=== PATIENT | female | born 1950 | race Caucasian/White ===

== ENCOUNTER 2017-09-06 18:04 | Inpatient (IN) | payer BC, OTHER ==
[2017-09-06] MEDS ORDERED: Sodium Chloride 0.9% 1,000 ML IV ONE (18:52)
[2017-09-06] MEDS ORDERED: Ondansetron 4 MG/2 ML SDV IVPUSH ONE (18:52)
[2017-09-06 19:27] LABS: CHLORIDE,CL 100 mmol/L (98-107); SODIUM,NA 136 mmol/L (136-145)
[2017-09-06] MEDS ORDERED: Iopamidol 755 MG/ML 200 ML Multipack Bottle IVPUSH ONE (20:22)
--- NOTE | 2017-09-06 21:19 | PCM.HP ---
H&P History of Present Illness - General Date of Service: 09/06/17 Source of Information: Patient History Limitations: Reports: No Limitations - History of Present Illness Initial Comments - Free Text/Narative: Patient is a 67 year old female with a past medical history significant for breast cancer, heart disease, hypothyroidism who presents with abdominal pain. She developed upper abdominal pain last Friday. The pain became more centered on the right side and she presented to the [place] [facility] on Friday. They did an US of the RUQ that showed a normal gallbladder. They told her that she had diverticulitis. She was given cipro and flagyl. She did not take it until yesterday (Friday) evening. She started having nausea and vomiting yesterday morning. She has been unable to keep down fluids or solids. She denies fever but felt warm. She last ate at 5pm but vomited this up. Her father of colon cancer. Her last colonoscopy was "a long time ago." She was told her heart is enlarged but takes ASA and atenolol. She has had an echo but doesnt know the results of it. Abdomen Pain Score (Numeric/FACES): 5 - Related Data Allergies/Adverse Reactions: Allergies Allergy/AdvReac Type Severity Reaction Status Date / Time amoxicillin Allergy Rash Verified 09/06/17 18:21 Home Medications: Home Meds Aspirin 325 mg PO DAILY 09/06/17 [History] Atenolol [Tenormin] 50 mg PO DAILY 09/06/17 [History] Levothyroxine 75 mcg PO DAILY 09/06/17 [History] atorvaSTATin [Lipitor] 80 mg PO DAILY 09/06/17 [History] Past Medical History Cardiovascular History: Reports: Cardiomyopathy, High Cholesterol, Hypertension Gastrointestinal History: Reports: Diverticulosis, Other (See Below) Other Gastrointestinal History: diverticulits or chron's-unsure of dx [employer] History: Reports: Musculoskeletal History: Reports: Arthritis, Osteoporosis Endocrine/Metabolic History: Reports: Hypothyroidism Oncologic (Cancer) History: Reports: Breast - Infectious Disease History Infectious Disease History: Reports: Chicken Pox, Measles, Mumps - Past Surgical History HEENT Surgical History: Reports: Tonsillectomy Female Surgical History: Reports: Cystectomy, Mastectomy, Tubal Ligation Oncologic Surgical History: Reports: Mastectomy Social & Family History - Family History Oncologic: Reports: Colon (father) - Tobacco Use Smoking Status *Q: Former Smoker Used Tobacco, but Quit: Yes Month Tobacco Last Used: 1970 - Caffeine Use Caffeine Use: Reports: None - Recreational Drug Use Recreational Drug Use: No H&P Review of Systems - Review of Systems: Review Of Systems: See Below General: Reports: Malaise, Weakness, Fatigue, Diaphoresis, Decreased Appetite Pulmonary: Reports: No Symptoms Cardiovascular: Reports: No Symptoms Gastrointestinal: Reports: Abdominal Pain, Anorexia, Diarrhea, Decreased Appetite Genitourinary: Reports: No Symptoms Musculoskeletal: Reports: No Symptoms Skin: Reports: No Symptoms Exam - Exam Exam: See Below - Vital Signs Vital Signs: Last Vital Signs Temp 36.8 C 09/06/17 18:17 Pulse 113 H 09/06/17 18:17 Resp 20 09/06/17 18:17 BP 121/93 H 09/06/17 18:17 Pulse Ox 94 L 09/06/17 18:17 Weight: 67.585 kg - Exam General: Alert, Oriented, Mild Distress HEENT: Conjunctiva Clear, Posterior Pharynx Clear, Pupils Equal, Pupils Reactive Neck: Supple Lungs: Clear to Auscultation, Normal Respiratory Effort Cardiovascular: Regular Rate, Regular Rhythm GI/Abdominal Exam: Soft, Distended, Guarding, Rebound, Tender. No: Rigid Extremities: Normal Inspection, Normal Range of Motion - Patient Data Lab Results Last 24 hrs: Laboratory Results - last 24 hr 09/06/17 09/06/17 09/06/17 Range/Units 18:59 18:59 18:59 WBC 13.13 H (4.0-11.0) K/uL RBC 4.52 (4.30-5.90) M/uL Hgb 14.0 (12.0-16.0) g/dL Hct 41.5 (36.0-46.0) % MCV 91.8 (80.0-98.0) fL MCH 31.0 (27.0-32.0) pg MCHC 33.7 (31.0-37.0) g/dL RDW Std Deviation 44.4 (28.0-62.0) fl RDW Coeff of Terry 13 (11.0-15.0) % Plt Count 240 (150-400) K/uL MPV 9.30 (7.40-12.00) fL Neut % (Auto) 85.4 H (48.0-80.0) % Lymph % (Auto) 5.3 L (16.0-40.0) % [place] % (Auto) 9.1 (0.0-15.0) % Eos % (Auto) 0.0 (0.0-7.0) % Baso % (Auto) 0.2 (0.0-1.5) % Neut # (Auto) 11.2 H (1.4-5.7) K/uL Lymph # (Auto) 0.7 (0.6-2.4) K/uL [place] # (Auto) 1.2 H (0.0-0.8) K/uL Eos # (Auto) 0.0 (0.0-0.7) K/uL Baso # (Auto) 0.0 (0.0-0.1) K/uL Nucleated RBC % 0.0 /100WBC Nucleated RBCs # 0 K/uL Lactate 0.9 (0.20-2.00) mmol/L Sodium 136 (136-145) mmol/L Potassium 3.6 (3.5-5.1) mmol/L Chloride 100 (98-107) mmol/L Carbon Dioxide 27.5 (21.0-32.0) mmol/L BUN 21 H (7.0-18.0) mg/dL Creatinine 0.8 (0.6-1.0) mg/dL Est Cr Clr Drug Dosing 47.67 mL/min Estimated GFR (MDRD) > 60.0 ml/min Glucose 135 H (74-106) mg/dL Calcium 8.8 (8.5-10.1) mg/dL Total Bilirubin 1.1 H (0.2-1.0) mg/dL AST 22 (15-37) U/L ALT 29 (14-63) U/L Alkaline Phosphatase 94 (46-116) U/L Total Protein 7.3 (6.4-8.2) g/dL Albumin 2.8 L (3.4-5.0) g/dL Globulin 4.5 H (2.0-3.5) g/dL Albumin/Globulin Ratio 0.6 L (1.3-2.8) Amylase 16 L (25-115) U/L Lipase 86 (73-393) U/L Urine Color Urine Appearance Urine pH (5.0-8.0) Ur Specific [place] (1.001-1.035) Urine Protein (NEGATIVE) mg/dL Urine Glucose (UA) (NEGATIVE) mg/dL Urine Ketones (NEGATIVE) mg/dL Urine Occult Blood (NEGATIVE) Urine Nitrite (NEGATIVE) Urine Bilirubin (NEGATIVE) Urine Ictotest Urine Urobilinogen (<2.0) EU/dL Ur Leukocyte Esterase (NEGATIVE) Urine RBC (0-2/HPF) Urine WBC (0-5/HPF) Ur Epithelial Cells (NONE-FEW) Amorphous Sediment (NEGATIVE) Urine Bacteria (NEGATIVE) Urine Other Urinalysis Comment 09/06/17 Range/Units 20:14 WBC (4.0-11.0) K/uL RBC (4.30-5.90) M/uL Hgb (12.0-16.0) g/dL Hct (36.0-46.0) % MCV (80.0-98.0) fL MCH (27.0-32.0) pg MCHC (31.0-37.0) g/dL RDW Std Deviation (28.0-62.0) fl RDW Coeff of [place] (11.0-15.0) % Plt Count (150-400) K/uL MPV (7.40-12.00) fL Neut % (Auto) (48.0-80.0) % Lymph % (Auto) (16.0-40.0) % [place] % (Auto) (0.0-15.0) % Eos % (Auto) (0.0-7.0) % Baso % (Auto) (0.0-1.5) % Neut # (Auto) (1.4-5.7) K/uL Lymph # (Auto) (0.6-2.4) K/uL [place] # (Auto) (0.0-0.8) K/uL Eos # (Auto) (0.0-0.7) K/uL Baso # (Auto) (0.0-0.1) K/uL Nucleated RBC % /100WBC Nucleated RBCs # K/uL Lactate (0.20-2.00) mmol/L Sodium (136-145) mmol/L Potassium (3.5-5.1) mmol/L Chloride (98-107) mmol/L Carbon Dioxide (21.0-32.0) mmol/L BUN (7.0-18.0) mg/dL Creatinine (0.6-1.0) mg/dL Est Cr Clr Drug Dosing mL/min Estimated GFR (MDRD) ml/min Glucose (74-106) mg/dL Calcium (8.5-10.1) mg/dL Total Bilirubin (0.2-1.0) mg/dL AST (15-37) U/L ALT (14-63) U/L Alkaline Phosphatase (46-116) U/L Total Protein (6.4-8.2) g/dL Albumin (3.4-5.0) g/dL Globulin (2.0-3.5) g/dL Albumin/Globulin Ratio (1.3-2.8) Amylase (25-115) U/L Lipase (73-393) U/L Urine Color DARK YELLOW Urine Appearance SLT CLOUDY Urine pH 5.0 (5.0-8.0) Ur Specific [place] >= 1.030 (1.001-1.035) Urine Protein 100 (NEGATIVE) mg/dL Urine Glucose (UA) 100 H (NEGATIVE) mg/dL Urine Ketones TRACE H (NEGATIVE) mg/dL Urine Occult Blood TRACE-LYSED (NEGATIVE) Urine Nitrite POSITIVE H (NEGATIVE) Urine Bilirubin MODERATE H (NEGATIVE) Urine Ictotest NEGATIVE Urine Urobilinogen 2.0 H (<2.0) EU/dL Ur Leukocyte Esterase TRACE (NEGATIVE) Urine RBC 0-2 (0-2/HPF) Urine WBC 0-3 (0-5/HPF) Ur Epithelial Cells FEW (NONE-FEW) Amorphous Sediment LIGHT (NEGATIVE) Urine Bacteria 1+ H (NEGATIVE) Urine Other Not Reportable Urinalysis Comment Result Diagrams: 09/06/17 18:59 09/06/17 18:59 *Q Meaningful Use (ADM) - VTE *Q VTE Criteria *Q: - Stroke *Q Stroke Criteria *Q: - AMI *Q AMI Criteria *Q: - Problem List (1) SBO (small bowel obstruction) SNOMED Code(s): 105341804 ICD Code: K56.609 - UNSP INTESTNL OBST, UNSP TO PARTIAL VERSUS COMPLETE OBST Status: Acute Current Visit: Yes (2) Appendicitis SNOMED Code(s): 12757625 ICD Code: K37 - UNSPECIFIED APPENDICITIS Status: Acute Current Visit: Yes Problem List Initiated/Reviewed/Updated: Yes Orders Last 24hrs: Active Orders 24 hr Category Date Time Status EKG Documentation Completion [RC] STAT Care 09/06/17 20:52 Active Abdomen Pelvis w Cont [CT] Stat Exams 09/06/17 19:21 Taken CULTURE BLOOD [BC] Stat Lab 09/06/17 20:50 Received CULTURE BLOOD [BC] Stat Lab 09/06/17 20:56 Received Blood Culture x2 Reflex Set [OM.PC] Stat Oth 09/06/17 20:22 Ordered Assessment/Plan Comment:: Patient is a 67 year old female who presents with what appears to be acute appendicitis associated with a partial SBO. Her bowel distension on exam and CT is not enough to preclude me from trying to attempt a laparoscopic approach to appendectomy. However the patient understands that I will have a low threshold to go open if I cannot establish a working domain or if I cannot successfully remove the appendix laparoscopically due to anatomy or perforation. The patient understands that because of her distended small bowel there is a slightly higher risk of damaging surrounding bowel upon entry. The benefits of laparoscopic surgery over open are less pain, shorter hospital stay and sooner back to work. She and I discussed the pathophysiology of acute appendicitis. We discussed the expected erick-operative course. We discussed the risks including bleeding, infection, or damage to surrounding structures. She understands these , verbalized understanding and wishes to proceed.
[2017-09-06] MEDS ORDERED: HYDROmorphone 1 MG/ML Syringe IVPUSH PRN (21:31)
[2017-09-06] MEDS ORDERED: ceFAZolin 1 GM Vial ONE (21:39)
[2017-09-06] MEDS ORDERED: Bupivacaine 0.5% 30 ML SDV ONE (21:39)
--- NOTE | 2017-09-06 21:42 | PCM.PREANE ---
Preanesthetic Assessment - Anesthesia/Transfusion/Family Hx Anesthesia History: Prior Anesthesia Without Reaction - Review of Systems General: No Symptoms Pulmonary: No Symptoms Cardiovascular: No Symptoms Gastrointestinal: No Symptoms Neurological: No Symptoms Other: Reports: None - Physical Assessment NPO Status Date: 09/06/17 NPO Status Time: 15:00 O2 Sat by Pulse Oximetry: 95 Respiratory Rate: 17 Vital Signs: Last Vital Signs Temp 98.2 F 09/06/17 18:17 Pulse 97 09/06/17 21:19 Resp 17 09/06/17 21:19 BP 164/104 H 09/06/17 21:19 Pulse Ox 95 09/06/17 21:19 Height: 5 ft Weight: 67.585 kg ASA Class: 3 Mental Status: Alert & Oriented x3 Airway Class: Mallampati = 2 Dentition: Reports: Hale(s), Caries Thyro-Mental Finger Breadths: 2 Mouth Opening Finger Breadths: 2 ROM/Head Extension: Limited/Partial Lungs: Clear to Auscultation, Normal Respiratory Effort Cardiovascular: Regular Rhythm, Tachycardia - Lab Values: Laboratory Last Values WBC 13.13 K/uL (4.0-11.0) H 09/06/17 18:59 RBC 4.52 M/uL (4.30-5.90) 09/06/17 18:59 Hgb 14.0 g/dL (12.0-16.0) 09/06/17 18:59 Hct 41.5 % (36.0-46.0) 09/06/17 18:59 MCV 91.8 fL (80.0-98.0) 09/06/17 18:59 MCH 31.0 pg (27.0-32.0) 09/06/17 18:59 MCHC 33.7 g/dL (31.0-37.0) 09/06/17 18:59 RDW Std Deviation 44.4 fl (28.0-62.0) 09/06/17 18:59 RDW Coeff of Terry 13 % (11.0-15.0) 09/06/17 18:59 Plt Count 240 K/uL (150-400) 09/06/17 18:59 MPV 9.30 fL (7.40-12.00) 09/06/17 18:59 Neut % (Auto) 85.4 % (48.0-80.0) H 09/06/17 18:59 Lymph % (Auto) 5.3 % (16.0-40.0) L 09/06/17 18:59 [place] % (Auto) 9.1 % (0.0-15.0) 09/06/17 18:59 Eos % (Auto) 0.0 % (0.0-7.0) 09/06/17 18:59 Baso % (Auto) 0.2 % (0.0-1.5) 09/06/17 18:59 Neut # (Auto) 11.2 K/uL (1.4-5.7) H 09/06/17 18:59 Lymph # (Auto) 0.7 K/uL (0.6-2.4) 09/06/17 18:59 [place] # (Auto) 1.2 K/uL (0.0-0.8) H 09/06/17 18:59 Eos # (Auto) 0.0 K/uL (0.0-0.7) 09/06/17 18:59 Baso # (Auto) 0.0 K/uL (0.0-0.1) 09/06/17 18:59 Nucleated RBC % 0.0 /100WBC 09/06/17 18:59 Nucleated RBCs # 0 K/uL 09/06/17 18:59 Lactate 0.9 mmol/L (0.20-2.00) 09/06/17 18:59 Sodium 136 mmol/L (136-145) 09/06/17 18:59 Potassium 3.6 mmol/L (3.5-5.1) 09/06/17 18:59 Chloride 100 mmol/L (98-107) 09/06/17 18:59 Carbon Dioxide 27.5 mmol/L (21.0-32.0) 09/06/17 18:59 BUN 21 mg/dL (7.0-18.0) H 09/06/17 18:59 Creatinine 0.8 mg/dL (0.6-1.0) 09/06/17 18:59 Est Cr Clr Drug Dosing 47.67 mL/min 09/06/17 18:59 Estimated GFR (MDRD) > 60.0 ml/min 09/06/17 18:59 Glucose 135 mg/dL (74-106) H 09/06/17 18:59 Calcium 8.8 mg/dL (8.5-10.1) 09/06/17 18:59 Total Bilirubin 1.1 mg/dL (0.2-1.0) H 09/06/17 18:59 AST 22 U/L (15-37) 09/06/17 18:59 ALT 29 U/L (14-63) 09/06/17 18:59 Alkaline Phosphatase 94 U/L (46-116) 09/06/17 18:59 Total Protein 7.3 g/dL (6.4-8.2) 09/06/17 18:59 Albumin 2.8 g/dL (3.4-5.0) L 09/06/17 18:59 Globulin 4.5 g/dL (2.0-3.5) H 09/06/17 18:59 Albumin/Globulin Ratio 0.6 (1.3-2.8) L 09/06/17 18:59 Amylase 16 U/L (25-115) L 09/06/17 18:59 Lipase 86 U/L (73-393) 09/06/17 18:59 Urine Color DARK YELLOW 09/06/17 20:14 Urine Appearance SLT CLOUDY 09/06/17 20:14 Urine pH 5.0 (5.0-8.0) 09/06/17 20:14 Ur Specific [place] >= 1.030 (1.001-1.035) 09/06/17 20:14 Urine Protein 100 mg/dL (NEGATIVE) 09/06/17 20:14 Urine Glucose (UA) 100 mg/dL (NEGATIVE) H 09/06/17 20:14 Urine Ketones TRACE mg/dL (NEGATIVE) H 09/06/17 20:14 Urine Occult Blood TRACE-LYSED (NEGATIVE) 09/06/17 20:14 Urine Nitrite POSITIVE (NEGATIVE) H 09/06/17 20:14 Urine Bilirubin MODERATE (NEGATIVE) H 09/06/17 20:14 Urine Ictotest NEGATIVE 09/06/17 20:14 Urine Urobilinogen 2.0 EU/dL (<2.0) H 09/06/17 20:14 Ur Leukocyte Esterase TRACE (NEGATIVE) 09/06/17 20:14 Urine RBC 0-2 (0-2/HPF) 09/06/17 20:14 Urine WBC 0-3 (0-5/HPF) 09/06/17 20:14 Ur Epithelial Cells FEW (NONE-FEW) 09/06/17 20:14 Amorphous Sediment LIGHT (NEGATIVE) 09/06/17 20:14 Urine Bacteria 1+ (NEGATIVE) H 09/06/17 20:14 Urine Other Not Reportable 09/06/17 20:14 Urinalysis Comment 09/06/17 20:14 - Allergies Allergies/Adverse Reactions: Allergies Allergy/AdvReac Type Severity Reaction Status Date / Time amoxicillin Allergy Rash Verified 09/06/17 18:21 - Anesthesia Plan Free Text/Narrative:: 09/06/17 - EKG - SR with LBBB - Acknowledgements Anesthesia Type Planned: General Anesthesia Pt an Appropriate Candidate for the Planned Anesthesia: Yes Alternatives and Risks of Anesthesia Discussed w Pt/Guardian: Yes Pt/Guardian Understands and Agrees with Anesthesia Plan: Yes PreAnesthesia Questionnaire HEENT History: Reports: None Cardiovascular History: Reports: Cardiomyopathy (Pt stated in 2007 she had an Echo that showed an enlarged heart, no other data is available), High Cholesterol, Hypertension Respiratory History: Reports: None Gastrointestinal History: Reports: Diverticulosis, Other (See Below) Other Gastrointestinal History: diverticulits or chron's-unsure of dx Genitourinary History: Reports: UTI, Recurrent PSYCHIATRIC TECH History: Reports: Musculoskeletal History: Reports: Arthritis, Osteoporosis Neurological History: Reports: None Psychiatric History: Reports: None Endocrine/Metabolic History: Reports: Hypothyroidism Hematologic History: Reports: None Immunologic History: Reports: None Oncologic (Cancer) History: Reports: None, Breast Dermatologic History: Reports: None - Infectious Disease History Infectious Disease History: Reports: Chicken Pox, Measles, Mumps - Past Surgical History HEENT Surgical History: Reports: Tonsillectomy Female Surgical History: Reports: Cystectomy, Mastectomy, Tubal Ligation Oncologic Surgical History: Reports: Mastectomy - SUBSTANCE USE Smoking Status *Q: Former Smoker Recreational Drug Use History: No - HOME MEDS Home Medications: Home Meds Aspirin 325 mg PO DAILY 09/06/17 [History] Atenolol [Tenormin] 50 mg PO DAILY 09/06/17 [History] Levothyroxine 75 mcg PO DAILY 09/06/17 [History] atorvaSTATin [Lipitor] 80 mg PO DAILY 03/03/18 [History] - CURRENT (IN HOUSE) MEDS Current Meds: Current Medications Hydromorphone HCl (Dilaudid) 0.5 mg IVPUSH Q1H PRN PRN Reason: Abdominal Pain Levofloxacin/Dextrose 750 mg/ (Premix) 150 mls @ 100 mls/hr IV Q24H SONY Metronidazole 250 mg/ Premix 50 mls @ 50 mls/hr IV QID SONY Lactated Ringer's (Ringers, Lactated) 1,000 mls @ 125 mls/hr IV ASDIRECTED SONY Discontinued Medications Sodium Chloride (Normal Saline) 1,000 mls @ 999 mls/hr IV STAT ONE Stop: 09/06/17 19:52 Last Admin: 09/06/17 19:14 Dose: 999 mls/hr Iopamidol (Isovue Multipack-370 (76%)) 80 ml IVPUSH ONETIME ONE Stop: 09/06/17 20:23 Last Admin: 09/06/17 20:23 Dose: 80 ml Ondansetron HCl (Zofran) 4 mg IVPUSH ONETIME ONE Stop: 09/06/17 18:53 Last Admin: 09/06/17 19:16 Dose: 4 mg
[2017-09-06] MEDS: Lactated Ringers 1,000 ML IV SCH (21:50)
[2017-09-06] MEDS ORDERED: Rocuronium 10 MG/ML 10 ML Syringe ONE (21:53)
[2017-09-06] MEDS: Levofloxacin/Dextrose 5%-Water 750 MG in Premix Bag 1 BAG IV SCH (21:53)
[2017-09-06] MEDS ORDERED: Ondansetron 4 MG/2 ML SDV ONE (21:53)
[2017-09-06] MEDS ORDERED: Lidocaine 2% 5 ML SDV ONE (21:53)
[2017-09-06] MEDS ORDERED: Etomidate 2 MG/ML 20 ML SDV IVPUSH ONE (21:53)
[2017-09-06] MEDS ORDERED: Midazolam 1 MG/ML 2 ML SDV ONE (21:53)
[2017-09-06] MEDS ORDERED: Succinylcholine/Normal Saline 200 MG/10 ML Syringe ONE (21:53)
[2017-09-06] MEDS ORDERED: fentaNYL 250 MCG/5 ML SDV ONE (21:53)
--- NOTE | 2017-09-06 22:16 | EDM.PDOC ---
ED HPI GENERAL MEDICAL PROBLEM - General Chief Complaint: Gastrointestinal Problem Stated Complaint: NAUSEA/VOMITING/DIARRHEA/STOMACH PAIN Time Seen by Provider: 09/06/17 18:45 Source of Information: Reports: Patient History Limitations: Reports: No Limitations - History of Present Illness INITIAL COMMENTS - FREE TEXT/NARRATIVE: HISTORY AND PHYSICAL: History of present illness: [Patient comes to the emergency room complaining of abdominal pain for the past 8 days. She was evaluated the [place] [facility] on September 04. At that time labs were unremarkable and an abdominal ultrasound showed no abnormalities. He was presumed that her abdominal pain was due to diverticulitis and she was started on Cipro and Flagyl. She began these antibiotics around 4 PM last evening. 3 days ago she developed nausea, vomiting and diarrhea. She has had several episodes of vomiting every day and is vomiting up everything she eats or drinks , including sips of water. Over the past day her abdominal pain has worsened. Her granddaughter believes her abdomen is larger than in appearance than usual. She denies fever and chills, chest pain shortness of breath and difficulty breathing. Noticed some blood in her urine yesterday, but has not had any urinary frequency and dysuria. She denies low back pain. No new or different muscle or joint aches or pains. No blood in her stools. She feels very dry because she hasn't been able to keep down much fluid lately. ] Review of systems: As per history of present illness and below otherwise all systems reviewed and negative. Past medical history: As per history of present illness and as reviewed below otherwise noncontributory. Surgical history: As per history of present illness and as reviewed below otherwise noncontributory. Social history: No reported history of drug or alcohol abuse. Family history: As per history of present illness and as reviewed below otherwise noncontributory. Physical exam: HEENT: Atraumatic, normocephalic.Oral mucous membranes are pink and moist. Lungs: Clear to auscultation, breath sounds equal bilaterally. Heart: S1S2, regular, negative for clicks, rubs, or JVD. Abdomen: Increased abdominal discomfort with deep inspiration. Abdomen is distended and diffusely tender w/ palpation. Increased pain w/ palpation over suprapubic area. No CVA tenderness. Pelvis: Stable nontender. Genitourinary: Deferred. Rectal: Deferred. Extremities: Atraumatic, negative for cords or calf pain. No edema or cyanosis to feet or lower legs. Neurovascular unremarkable. Neuro: Awake, alert, oriented. Motor and sensory unremarkable throughout. Exam nonfocal. Diagnostics: [CBC, CMP, UA, urine culture, blood cultures x2, lactic acid, CT abd and pelvis w/ contrast] Therapeutics: [1 liter NS, Zofran 4mg IV] Impression: [appendicitis] Plan: [CT abdomen and pelvis shows an acute appendicitis without any evidence for perforation. Dr. Edna De Los Santos is in the ER and consults on this patient. Patient is prepped for appendectomy. See Dr. De Los Santos's note for further information.] Definitive disposition and diagnosis as appropriate pending reevaluation and review of above. Abdomen Pain Score (Numeric/FACES): 5 - Related Data Allergies Allergy/AdvReac Type Severity Reaction Status Date / Time amoxicillin Allergy Rash Verified 09/06/17 18:21 Home Meds: Home Meds Aspirin 325 mg PO DAILY 09/06/17 [History] Atenolol [Tenormin] 50 mg PO DAILY 09/06/17 [History] Levothyroxine 75 mcg PO DAILY 09/06/17 [History] atorvaSTATin [Lipitor] 80 mg PO DAILY 09/06/17 [History] Past Medical History HEENT History: Reports: None Cardiovascular History: Reports: Cardiomyopathy (Pt stated in 2007 she had an Echo that showed an enlarged heart, no other data is available), High Cholesterol, Hypertension Respiratory History: Reports: None Gastrointestinal History: Reports: Diverticulosis, Other (See Below) Other Gastrointestinal History: diverticulits or chron's-unsure of dx Genitourinary History: Reports: UTI, Recurrent [employer]ANG[employer] History: Reports: Musculoskeletal History: Reports: Arthritis, Osteoporosis Neurological History: Reports: None Psychiatric History: Reports: None Endocrine/Metabolic History: Reports: Hypothyroidism Hematologic History: Reports: None Immunologic History: Reports: None Oncologic (Cancer) History: Reports: None, Breast Dermatologic History: Reports: None - Infectious Disease History Infectious Disease History: Reports: Chicken Pox, Measles, Mumps - Past Surgical History HEENT Surgical History: Reports: Tonsillectomy Female Surgical History: Reports: Cystectomy, Mastectomy, Tubal Ligation Oncologic Surgical History: Reports: Mastectomy Social & Family History - Family History Family Medical History: Noncontributory Oncologic: Reports: Colon (father) - Tobacco Use Smoking Status *Q: Former Smoker Used Tobacco, but Quit: Yes Month Tobacco Last Used: 1970 - Caffeine Use Caffeine Use: Reports: None - Recreational Drug Use Recreational Drug Use: No ED ROS GENERAL - Review of Systems Review Of Systems: ROS reveals no pertinent complaints other than HPI. ED EXAM, GENERAL - Physical Exam Exam: See Below GI/Abdominal: Soft, Distended, Guarding, Rebound, Tender. No: Rigid Extremities: Normal Inspection, Normal Range of Motion Course - Vital Signs Last Recorded V/S: Last Vital Signs Temp 98.2 F 09/06/17 18:17 Pulse 97 09/06/17 21:19 Resp 17 09/06/17 21:42 BP 164/104 H 09/06/17 21:19 Pulse Ox 95 09/06/17 21:42 - Orders/Labs/Meds Orders: Active Orders 24 hr Category Date Time Status Patient Status [ADT] Routine ADT 09/06/17 21:32 Active Antiembolic Devices [RC] PER UNIT ROUTINE Care 09/06/17 21:32 Active EKG Documentation Completion [RC] STAT Care 09/06/17 20:52 Active Verify Patient Consent Obtain [RC] ASDIRECTED Care 09/06/17 21:32 Active Abdomen Pelvis w Cont [CT] Stat Exams 09/06/17 19:21 Taken CBC WITH AUTO DIFF [HEME] AM Lab 09/07/17 05:11 Ordered CULTURE BLOOD [BC] Stat Lab 09/06/17 20:50 Received CULTURE BLOOD [BC] Stat Lab 09/06/17 20:56 Received HYDROmorphone [Dilaudid] Med 09/06/17 21:31 Active 0.5 mg IVPUSH Q1H PRN Lactated Ringers [Ringers, Lactated] 1,000 ml Med 09/06/17 21:45 Active IV ASDIRECTED Levofloxacin/Dextrose 5%-Water [Levaquin in D5W 750 MG/ Med 09/06/17 21:30 Active 150 ML] 750 mg Premix Bag 1 bag IV Q24H metroNIDAZOLE/Normal Saline [Flagyl 500 MG in NS 100 ML Med 09/07/17 00:00 Active ] 250 mg Premix Bag 1 bag IV QID Blood Culture x2 Reflex Set [OM.PC] Stat Oth 09/06/17 20:22 Ordered Sequential Compression Device [OM.PC] Routine Oth 09/06/17 21:31 Ordered Resuscitation Status Routine Resus Stat 09/06/17 21:31 Ordered Medication Orders Hydromorphone HCl (Dilaudid) 0.5 mg IVPUSH Q1H PRN PRN Reason: Abdominal Pain Last Admin: 09/06/17 21:52 Dose: 0.5 mg Levofloxacin/Dextrose 750 mg/ (Premix) 150 mls @ 100 mls/hr IV Q24H SONY Last Admin: 09/06/17 21:53 Dose: 100 mls/hr Metronidazole 250 mg/ Premix 50 mls @ 50 mls/hr IV QID SONY Lactated Ringer's (Ringers, Lactated) 1,000 mls @ 125 mls/hr IV ASDIRECTED [facility] Last Admin: 09/06/17 21:50 Dose: 125 mls/hr Labs: Laboratory Tests 09/06/17 09/06/17 09/06/17 Range/Units 18:59 18:59 18:59 WBC 13.13 H (4.0-11.0) K/uL RBC 4.52 (4.30-5.90) M/uL Hgb 14.0 (12.0-16.0) g/dL Hct 41.5 (36.0-46.0) % MCV 91.8 (80.0-98.0) fL MCH 31.0 (27.0-32.0) pg MCHC 33.7 (31.0-37.0) g/dL RDW Std Deviation 44.4 (28.0-62.0) fl RDW Coeff of Terry 13 (11.0-15.0) % Plt Count 240 (150-400) K/uL MPV 9.30 (7.40-12.00) fL Neut % (Auto) 85.4 H (48.0-80.0) % Lymph % (Auto) 5.3 L (16.0-40.0) % Preston % (Auto) 9.1 (0.0-15.0) % Eos % (Auto) 0.0 (0.0-7.0) % Baso % (Auto) 0.2 (0.0-1.5) % Neut # (Auto) 11.2 H (1.4-5.7) K/uL Lymph # (Auto) 0.7 (0.6-2.4) K/uL Preston # (Auto) 1.2 H (0.0-0.8) K/uL Eos # (Auto) 0.0 (0.0-0.7) K/uL Baso # (Auto) 0.0 (0.0-0.1) K/uL Nucleated RBC % 0.0 /100WBC Nucleated RBCs # 0 K/uL Lactate 0.9 (0.20-2.00) mmol/L Sodium 136 (136-145) mmol/L Potassium 3.6 (3.5-5.1) mmol/L Chloride 100 (98-107) mmol/L Carbon Dioxide 27.5 (21.0-32.0) mmol/L BUN 21 H (7.0-18.0) mg/dL Creatinine 0.8 (0.6-1.0) mg/dL Est Cr Clr Drug Dosing 47.67 mL/min Estimated GFR (MDRD) > 60.0 ml/min Glucose 135 H (74-106) mg/dL Calcium 8.8 (8.5-10.1) mg/dL Total Bilirubin 1.1 H (0.2-1.0) mg/dL AST 22 (15-37) U/L ALT 29 (14-63) U/L Alkaline Phosphatase 94 (46-116) U/L Total Protein 7.3 (6.4-8.2) g/dL Albumin 2.8 L (3.4-5.0) g/dL Globulin 4.5 H (2.0-3.5) g/dL Albumin/Globulin Ratio 0.6 L (1.3-2.8) Amylase 16 L (25-115) U/L Lipase 86 (73-393) U/L Urine Color Urine Appearance Urine pH (5.0-8.0) Ur Specific Crockett (1.001-1.035) Urine Protein (NEGATIVE) mg/dL Urine Glucose (UA) (NEGATIVE) mg/dL Urine Ketones (NEGATIVE) mg/dL Urine Occult Blood (NEGATIVE) Urine Nitrite (NEGATIVE) Urine Bilirubin (NEGATIVE) Urine Ictotest Urine Urobilinogen (<2.0) EU/dL Ur Leukocyte Esterase (NEGATIVE) Urine RBC (0-2/HPF) Urine WBC (0-5/HPF) Ur Epithelial Cells (NONE-FEW) Amorphous Sediment (NEGATIVE) Urine Bacteria (NEGATIVE) Urine Other Urinalysis Comment 09/06/17 Range/Units 20:14 WBC (4.0-11.0) K/uL RBC (4.30-5.90) M/uL Hgb (12.0-16.0) g/dL Hct (36.0-46.0) % MCV (80.0-98.0) fL MCH (27.0-32.0) pg MCHC (31.0-37.0) g/dL RDW Std Deviation (28.0-62.0) fl RDW Coeff of Terry (11.0-15.0) % Plt Count (150-400) K/uL MPV (7.40-12.00) fL Neut % (Auto) (48.0-80.0) % Lymph % (Auto) (16.0-40.0) % Preston % (Auto) (0.0-15.0) % Eos % (Auto) (0.0-7.0) % Baso % (Auto) (0.0-1.5) % Neut # (Auto) (1.4-5.7) K/uL Lymph # (Auto) (0.6-2.4) K/uL Preston # (Auto) (0.0-0.8) K/uL Eos # (Auto) (0.0-0.7) K/uL Baso # (Auto) (0.0-0.1) K/uL Nucleated RBC % /100WBC Nucleated RBCs # K/uL Lactate (0.20-2.00) mmol/L Sodium (136-145) mmol/L Potassium (3.5-5.1) mmol/L Chloride (98-107) mmol/L Carbon Dioxide (21.0-32.0) mmol/L BUN (7.0-18.0) mg/dL Creatinine (0.6-1.0) mg/dL Est Cr Clr Drug Dosing mL/min Estimated GFR (MDRD) ml/min Glucose (74-106) mg/dL Calcium (8.5-10.1) mg/dL Total Bilirubin (0.2-1.0) mg/dL AST (15-37) U/L ALT (14-63) U/L Alkaline Phosphatase (46-116) U/L Total Protein (6.4-8.2) g/dL Albumin (3.4-5.0) g/dL Globulin (2.0-3.5) g/dL Albumin/Globulin Ratio (1.3-2.8) Amylase (25-115) U/L Lipase (73-393) U/L Urine Color DARK YELLOW Urine Appearance SLT CLOUDY Urine pH 5.0 (5.0-8.0) Ur Specific Crockett >= 1.030 (1.001-1.035) Urine Protein 100 (NEGATIVE) mg/dL Urine Glucose (UA) 100 H (NEGATIVE) mg/dL Urine Ketones TRACE H (NEGATIVE) mg/dL Urine Occult Blood TRACE-LYSED (NEGATIVE) Urine Nitrite POSITIVE H (NEGATIVE) Urine Bilirubin MODERATE H (NEGATIVE) Urine Ictotest NEGATIVE Urine Urobilinogen 2.0 H (<2.0) EU/dL Ur Leukocyte Esterase TRACE (NEGATIVE) Urine RBC 0-2 (0-2/HPF) Urine WBC 0-3 (0-5/HPF) Ur Epithelial Cells FEW (NONE-FEW) Amorphous Sediment LIGHT (NEGATIVE) Urine Bacteria 1+ H (NEGATIVE) Urine Other Not Reportable Urinalysis Comment Meds: Medications Generic Name Dose Route Start Last Admin Trade Name Freq PRN Reason Stop Dose Admin Hydromorphone HCl 0.5 mg 09/06/17 21:31 09/06/17 21:52 Dilaudid IVPUSH 0.5 mg Q1H PRN Administration Abdominal Pain Levofloxacin/Dextrose 750 mg/ 150 mls @ 100 mls/hr 09/06/17 21:30 09/06/17 21 :53 Premix IV 100 mls/hr Q24H SONY Administration Metronidazole 250 mg/ Premix 50 mls @ 50 mls/hr 09/07/17 00:00 IV QID SONY Lactated Ringer's 1,000 mls @ 125 mls/hr 09/06/17 21:45 09/06/17 21:50 Ringers, Lactated IV 125 mls/hr ASDIRECTED SONY Administration Discontinued Medications Generic Name Dose Route Start Last Admin Trade Name Freq PRN Reason Stop Dose Admin Bupivacaine HCl Confirm 09/06/17 21:39 Marcaine 0.5% Administered 09/06/17 21:40 Dose 30 ml .ROUTE .STK-MED ONE Cefazolin Sodium Confirm 09/06/17 21:39 Ancef Administered 09/06/17 21:40 Dose 1 gm .ROUTE .STK-MED ONE Etomidate Confirm 09/06/17 21:53 Amidate Administered 09/06/17 21:54 Dose 40 mg IVPUSH .STK-MED ONE Fentanyl Confirm 09/06/17 21:53 Sublimaze Administered 09/06/17 21:54 Dose 250 mcg .ROUTE .STK-MED ONE Sodium Chloride 1,000 mls @ 999 mls/hr 09/06/17 18:52 09/06/17 19:14 Normal Saline IV 09/06/17 19:52 999 mls/hr STAT ONE Administration Iopamidol 80 ml 09/06/17 20:22 09/06/17 20:23 Isovue Multipack-370 (76%) IVPUSH 09/06/17 20:23 80 ml ONETIME ONE Administration Lidocaine Confirm 09/06/17 21:53 Xylocaine-Mpf 2% Administered 09/06/17 21:54 Dose 5 ml .ROUTE .STK-MED ONE Midazolam HCl Confirm 09/06/17 21:53 Versed 1 Mg/Ml Administered 09/06/17 21:54 Dose 2 mg .ROUTE .STK-MED ONE Ondansetron HCl 4 mg 09/06/17 18:52 09/06/17 19:16 Zofran IVPUSH 09/06/17 18:53 4 mg ONETIME ONE Administration Ondansetron HCl Confirm 09/06/17 21:53 Zofran Administered 09/06/17 21:54 Dose 4 mg .ROUTE .STK-MED ONE Rocuronium [place] Confirm 09/06/17 21:53 Zemuron Administered 09/06/17 21:54 Dose 100 mg .ROUTE .STK-MED ONE Succinylcholine Chloride Confirm 09/06/17 21:53 Succinylcholine In Ns Pf Administered 09/06/17 21:54 Dose 200 mg .ROUTE .STK-MED ONE Departure - Departure Time of Disposition: 21:45 Disposition: Still A Patient 30 Clinical Impression: Appendicitis - Discharge Information - My Orders Last 24 Hours: My Active Orders 09/06/17 19:21 Abdomen Pelvis w Cont [CT] Stat 09/06/17 20:22 Blood Culture x2 Reflex Set [OM.PC] Stat 09/06/17 20:50 CULTURE BLOOD [BC] Stat 09/06/17 20:52 EKG Documentation Completion [RC] STAT 09/06/17 20:56 CULTURE BLOOD [BC] Stat - Assessment/Plan Last 24 Hours: My Active Orders 09/06/17 19:21 Abdomen Pelvis w Cont [CT] Stat 09/06/17 20:22 Blood Culture x2 Reflex Set [OM.PC] Stat 09/06/17 20:50 CULTURE BLOOD [BC] Stat 09/06/17 20:52 EKG Documentation Completion [RC] STAT 09/06/17 20:56 CULTURE BLOOD [BC] Stat
[2017-09-06] MEDS ORDERED: Phenylephrine 1% 10 MG/ML SDV ONE (22:22)
[2017-09-06] MEDS ORDERED: Phenylephrine/Normal Saline 100 MCG/ML 10 ML Syringe ONE (22:22)
[2017-09-06] MEDS ORDERED: ePHEDrine 50 MG/ML SDV ONE (22:25)
[2017-09-06] MEDS ORDERED: Water For Injection, Sterile 20 ML ONE (22:26)
[2017-09-06] MEDS ORDERED: Glycopyrrolate 0.2 MG/ML SDV ONE ×2 (22:27→22:30)
[2017-09-06] MEDS ORDERED: Neostigmine Methylsulfate 1 MG/ML 5 ML Syringe ONE (23:55)
[2017-09-07] MEDS ORDERED: diphenhydrAMINE 50 MG/ML SDV IVPUSH PRN (00:27)
[2017-09-07] MEDS ORDERED: Lactated Ringers 1,000 ML IV SCH (00:30)
[2017-09-07] MEDS ORDERED: fentaNYL 100 MCG/2 ML SDV IVPUSH PRN (00:32)
[2017-09-07] MEDS ORDERED: HYDROmorphone/Normal Saline 6 MG/30 ML PCA Vial IV PRN ×2 (00:34→08:15)
--- NOTE | 2017-09-07 00:42 | PCM.OPNOTE ---
- General Post-Op/Procedure Note Date of Surgery/Procedure: 09/07/17 Operative Procedure(s): Laparoscopic converted to open appendectomy Findings: Appendix was necrotic throughout the body and up to the base of the appendix. There was an abscess and large perforation at the base of the appendix. The patient was opened to allow closure of the base of the cecum. Pre Op Diagnosis: Appendicitis Post-Op Diagnosis: Perforated appendicitis with abscess and stool Anesthesia Technique: General ET Tube Primary Surgeon: Edna De Los Santos Secondary Surgeon: Chase Munoz Fluid Replacement, Intraop: 1,800 Output, Urine Amount: 60 EBL in mLs: 100 Surgical Drain/Tube Type: Mariano Drain Condition: Fair
[2017-09-07] MEDS ORDERED: Labetalol 100 MG/20 ML MDV IVPUSH PRN (00:59)
--- NOTE | 2017-09-07 01:09 | PCM.POSTAN ---
POST ANESTHESIA ASSESSMENT - MENTAL STATUS Mental Status: Alert, Oriented - RESPIRATORY Respiratory Status: Respiratory Rate WNL, Airway Patent, O2 Saturation Stable - CARDIOVASCULAR CV Status: Pulse Rate WNL, Blood Pressure Stable - GASTROINTESTINAL GI Status: No Symptoms - POST OP HYDRATION Hydration Status: Adequate & Stable
[2017-09-07] MEDS: metroNIDAZOLE/Normal Saline 250 MG in Premix Bag 1 BAG IV SCH ×5 (01:53→23:20)
[2017-09-07] MEDS: Lactated Ringers 1,000 ML IV SCH ×3 (01:54→20:02)
[2017-09-07] MEDS ORDERED: Lactated Ringers 1,000 ML IV ONE ×2 (06:00→12:15)
[2017-09-07] MEDS: Phenol 1.4% Oral Spray 177 ML Bottle MUCMEM PRN (06:16)
--- NOTE | 2017-09-07 07:12 | OR ---
SURGEON: CECILIA BERGMAN MD DATE OF PROCEDURE: 09/07/2017 PREOPERATIVE DIAGNOSIS: Appendicitis. POSTOPERATIVE DIAGNOSIS: Perforated appendicitis associated with abscess. PROCEDURE PERFORMED: Laparoscopic converted to open appendectomy. QUALIFICATIONS EXAMINER: Dr. Chase Munoz. ANESTHESIA: General endotracheal anesthesia. FLUIDS: 1800 mL of crystalloid. URINE OUTPUT: 60 mL urine. EBL: 100 mL. FINDINGS: Grossly inflamed and necrotic appendix. The base of the appendix was necrotic and open to the cecum. The appendix was associated with a small abscess. COMPLICATIONS: None. INDICATIONS: The patient is a 67-year-old female who developed abdominal pain last Friday. She presented to clinic on Friday and was diagnosed with diverticulitis and prescribed antibiotics. The patient started taking these antibiotics yesterday, but developed nausea and vomiting. She presented to the emergency room with increasing abdominal pain and distention, nausea, and vomiting. A CT of the abdomen and pelvis showed an inflamed appendix associated with a partial small bowel obstruction. The decision was made to proceed to the operating room to perform a laparoscopic possible open appendectomy. Given the patient's length of symptoms, I informed her that this appendix would most likely be perforated. We discussed the need to go open should I get in there and be unable to perform it safely laparoscopically. We discussed the procedure, expected perioperative course, as well as risks including bleeding, infection, abscess formation, as well as damage to the surrounding structures. The patient verbalized understanding and wishes to proceed. PROCEDURE IN DETAIL: The patient was brought into the operating room and placed on the OR table in supine position. A time-out was completed verifying the patient's name, age, date of , allergies, and procedure to be performed. General endotracheal anesthesia was induced. An NG was placed. The left arm was tucked at the patient's side and a Rose catheter placed. The abdomen was prepped and draped in usual standard fashion. I anesthetized the area 3 fingerbreadths below the left subcostal margin along the midclavicular line with 0.5% Marcaine plain. A 1-cm incision was made over this area. A 5-mm optical trocar and 5 mm 0-degree scope were used to gain entry into the abdomen in the left upper quadrant under direct visualization. The abdomen was then insufflated. A 5 mm 30-degree scope was inserted in the abdomen and I inspected the area underneath my incision site. No damage to the surrounding structures was noted. A 5-mm trocar was placed under direct visualization just lateral to the umbilicus and a 12-mm trocar was placed in the left lower quadrant under direct visualization. The patient was placed into Trendelenburg position and airplaned slightly to the left. The small bowel was adhered to the colon in the right lower quadrant. These adhesions were gently teased away using suction and blunt dissection. I then identified an inflamed and necrotic-appearing appendix. The tip of the appendix was grasped with an atraumatic grasper and elevated. The appendiceal mesentery was extremely thickened and inflamed. A Harmonic Scalpel was used to dissect the appendix from the appendiceal mesentery from the tip down to the base of the appendix. This allowed me enough mobilization to be able to identify the base of the appendix. Small amount of omentum and mesentery were covering this area. This was dissected away revealing an abscess at the base of the appendix. After suctioning this away, I noted the area to be necrotic and widely open to the base of the cecum. The appendix inserted very close to the terminal ileum and I was unable to get a stapler safely across this area without involving the terminal ileum. The decision was made to convert to open to allow me to close this area primarily. While the operating room team opened instruments, I closed the fascia at the 12-mm port site using an 0 Vicryl and a Peterson-Gilbert needle. An oblique incision was made along McBurney's point using a 10 blade. Cautery was used to dissect down the level of the external oblique fascia. This was opened along the length of its fibers. I then used the Metzenbaum scissors to open up the internal oblique, transverse abdominus muscles and the peritoneum. I extended my incision medially and laterally. I immediately identified my cecum. I followed this down to the appendix. The cecum and appendix were delivered up into my incision and the incision was protected with lap pads. I could see that the anterior half of the appendix had necrosed away from its base. The posterior wall was necrotic as well. My partner, Dr. Chase Munoz, scrubbed into the case to assist me with closure. Metzenbaum scissors were used to remove it circumferentially and debride the wound edges back to healthy tissue. A running 3-0 Vicryl suture was then used to close the defect. The wound was then copiously irrigated with normal saline. 3-0 silks were placed in interrupted fashion over this incision line to buttress it and provide a second layer of closure. The wound was then copiously irrigated with normal saline and no evidence of any stool leakage was noted. A 19-Swedish Mariano drain was then placed along the right pericolic gutter down into the pelvis, it was secured to the right lower quadrant using a 2-0 Monocryl stitch. The drain was brought out through a separate incision in the right lower quadrant. The abdomen was then irrigated again with normal saline. I closed the peritoneum with a running 0 Vicryl suture. The fascia was then closed with a running 0 Vicryl suture. The skin wound was irrigated with normal saline. Skin alberto were placed along the incision and a Ailyn drain was placed in between these to allow to facilitate drainage. The laparoscopic incisions were closed with skin alberto as well. Sterile dressings were applied. The patient tolerated the procedure well and was taken to PACU in stable condition. ANEUDY KOEHLER /[id number] MARIBETH
[2017-09-07 07:33] LABS: CHLORIDE,CL 104 mmol/L (98-107); SODIUM,NA 137 mmol/L (136-145)
[2017-09-07] MEDS: Pantoprazole 40 MG Vial IVPUSH SCH (07:43)
[2017-09-07] MEDS ORDERED: Sodium Phosphate 15 mMole/5 ML SDV IV ONE (08:20)
[2017-09-07] MEDS ORDERED: Magnesium Sulfate/Water 4 GM in Premix Bag 1 BAG IV ONE (08:20)
--- NOTE | 2017-09-07 08:48 | PCM48HPAN ---
Post Anesthesia Note - EVALUATION WITHIN 48HRS OF ANESTHETIC Vital Signs in Normal Range: Yes Patient Participated in Evaluation: Yes Respiratory Function Stable: Yes Airway Patent: Yes Cardiovascular Function Stable: Yes Hydration Status Stable: Yes Pain Control Satisfactory: Yes Nausea and Vomiting Control Satisfactory: Yes Mental Status Recovered: Yes Pulse Rate: 110 SaO2: 96 Resp Rate: 14
[2017-09-07] MEDS ORDERED: Sodium Phosphate 15 MMOLE in Sodium Chloride 0.9% 250 ML IV ONE (10:00)
[2017-09-07] MEDS: Heparin Sodium 5,000 Units/ML Vial SUBCUT SCH (20:03)
[2017-09-07] MEDS: Levofloxacin/Dextrose 5%-Water 750 MG in Premix Bag 1 BAG IV SCH (20:34)
[2017-09-08] MEDS: Lactated Ringers 1,000 ML IV SCH (04:09)
[2017-09-08] MEDS: metroNIDAZOLE/Normal Saline 250 MG in Premix Bag 1 BAG IV SCH ×2 (06:20→14:10)
[2017-09-08 06:23] LABS: CHLORIDE,CL 104 mmol/L (98-107); SODIUM,NA 138 mmol/L (136-145)
--- NOTE | 2017-09-08 06:25 | CT ---
EXAM DATE: 09/07/17 PATIENT'S AGE: 67 Patient: ALIRIO RODRÍGUEZ Facility: [place], [place] Site . Site : 1950 Study: CT Abdomen/Pelvis w lázaro [id number] 8:17:33 PM Ordering Physician: Doctor Liriano Final Report: INDICATION: Abdomen pain with elevated white blood cell count. TECHNIQUE: CT abdomen and pelvis acquired with 80 cc Isovue 370 IV contrast. COMPARISON: None. FINDINGS: Lower chest: Coronary artery atherosclerosis is present. Liver: Unremarkable. Normal in size and attenuation. No masses. Gallbladder and bile ducts: Unremarkable. No stones or inflammation. No biliary dilatation. Pancreas: Unremarkable. No mass or inflammation. Spleen: Unremarkable. Normal in size. No masses. Adrenal glands: Unremarkable. No nodules. Kidneys: There are multiple bilateral parapelvic cysts. Otherwise unremarkable. GI tract: The appendix is inflamed and dilated measuring up to 1.5 cm in diameter. Large fecalith is at the origin of the appendix. No sign of adjacent abscess or free air. Proximal to mid small bowel measures up to 3.2 cm in diameter with multiple air-fluid levels. Colon is decompressed. Vasculature: Unremarkable. Lymph nodes: No lymphadenopathy. Omentum/Peritoneum/Abdominal Wall: Unremarkable. No sign of mass or infiltration. No free air or significant free fluid. Pelvis: Unremarkable. Bones: Unremarkable for age. IMPRESSION: 1. Acute appendicitis which is markedly dilated and inflamed. No convincing evidence for perforation. 2. Dilatation of the proximal to mid small bowel may represent an ileus favored over partial bowel obstruction. 3. Coronary artery atherosclerosis. Dictated by Uziel Burton MD @ 09/06/2017 8:34:25 PM Dictated by: Uziel Burton MD @ 09/06/2017 20:34:33 (Electronic Signature) Report Signed by Proxy. MARIBETH
--- NOTE | 2017-09-08 06:47 | CR ---
EXAM DATE: 09/07/17 PATIENT'S AGE: 67 Patient: ALIRIO RODRÍGUEZ Facility: [place], [place] Site . Site : 1950 Study: XRay Abdomen [id number]/4/2018 3:38:12 AM Ordering Physician: Filiberto Bishop Final Report: INDICATION: Small bowel obstruction. Nasogastric tube placement. COMPARISON: CT done 09/06/2017. FINDINGS: A supine AP view of the abdomen was obtained. There is nasogastric with the tip in the stomach. There are dilated loops small bowel consistent with a small bowel obstruction. IMPRESSION: Nasogastric tube tip in stomach. Continue small bowel obstruction. Dictated by Noah Rubio MD @ 09/07/2017 4:11:20 AM Dictated by: Noah Rubio MD @ 09/07/2017 04:11:54 (Electronic Signature) Report Signed by Proxy. MARIBETH
[2017-09-08] MEDS: Heparin Sodium 5,000 Units/ML Vial SUBCUT SCH ×2 (08:33→20:49)
[2017-09-08] MEDS: Pantoprazole 40 MG Vial IVPUSH SCH (08:33)
[2017-09-08] MEDS ORDERED: Magnesium Sulfate/Water 4 GM in Premix Bag 1 BAG IV ONE (09:08)
[2017-09-08] MEDS ORDERED: D5 1/2 NS w/ 20 mEq/L KCl 1,000 ML IV SCH (09:30)
[2017-09-08] MEDS: Dextrose 5%-0.9% NaCl with KCl 1,000 ML IV SCH ×2 (09:38→20:48)
--- NOTE | 2017-09-08 09:58 | PCM.SURGPN ---
- General Info Date of Service: 09/08/17 Date of Surgery/Procedure: 09/06/17 POD#: 2 Post-Op Diagnosis: ruptured appendicitis Functional Status: Reports: Pain Controlled, Ambulating, Other (Pain well controlled. Vital signs improved overnight. UOP adequate and BUN/Cr WNL. No flatus. Abdomen still moderately distended. Marginal output from NG. Able to sit up to chair yesterday. ) - Review of Systems General: Reports: No Symptoms Pulmonary: Reports: No Symptoms Cardiovascular: Reports: No Symptoms Gastrointestinal: Reports: Constipation. Denies: Nausea, Vomiting Genitourinary: Reports: No Symptoms Musculoskeletal: Reports: No Symptoms - Patient Data Vitals - Most Recent: Last Vital Signs Temp 36.6 C 09/08/17 05:00 Pulse 106 H 09/07/17 18:00 Resp 16 09/08/17 06:00 BP 94/54 L 09/08/17 06:00 Pulse Ox 93 L 09/08/17 06:00 Weight - Most Recent: 75.2 kg I&O - Last 24 Hours: Intake & Output 09/07/17 09/08/17 09/08/17 22:59 06:59 14:59 Intake Total 1255 1730 50 Output Total 140 480 Balance 1115 1250 50 Lab Results Last 24 Hrs: Laboratory Results - last 24 hr 09/07/17 09/08/17 09/08/17 Range/Units 15:06 05:32 05:32 WBC 10.69 (4.0-11.0) K/uL RBC 3.96 L (4.30-5.90) M/uL Hgb 12.1 (12.0-16.0) g/dL Hct 37.6 (36.0-46.0) % MCV 94.9 (80.0-98.0) fL MCH 30.6 (27.0-32.0) pg MCHC 32.2 (31.0-37.0) g/dL RDW Std Deviation 47.9 (28.0-62.0) fl RDW Coeff of Terry 14 (11.0-15.0) % Plt Count 256 (150-400) K/uL MPV 9.30 (7.40-12.00) fL Neut % (Auto) 82.3 H (48.0-80.0) % Lymph % (Auto) 6.8 L (16.0-40.0) % [place] % (Auto) 10.4 (0.0-15.0) % Eos % (Auto) 0.3 (0.0-7.0) % Baso % (Auto) 0.2 (0.0-1.5) % Neut # (Auto) 8.8 H (1.4-5.7) K/uL Lymph # (Auto) 0.7 (0.6-2.4) K/uL [place] # (Auto) 1.1 H (0.0-0.8) K/uL Eos # (Auto) 0.0 (0.0-0.7) K/uL Baso # (Auto) 0.0 (0.0-0.1) K/uL Nucleated RBC % 0.0 /100WBC Nucleated RBCs # 0 K/uL Sodium 138 (136-145) mmol/L Potassium 3.8 (3.5-5.1) mmol/L Chloride 104 (98-107) mmol/L Carbon Dioxide 28.0 (21.0-32.0) mmol/L BUN 8 6 L (7.0-18.0) mg/dL Creatinine 0.7 0.6 (0.6-1.0) mg/dL Est Cr Clr Drug Dosing 54.48 63.56 mL/min Estimated GFR (MDRD) > 60.0 > 60.0 ml/min Glucose 87 (74-106) mg/dL Calcium 7.9 L (8.5-10.1) mg/dL Phosphorus 2.6 (2.6-4.7) mg/dL Magnesium 2.0 1.8 (1.5-2.0) mg/dL Med Orders - Current: Current Medications Diphenhydramine HCl (Benadryl) 50 mg IVPUSH Q4H PRN PRN Reason: Itching Heparin Sodium (Porcine) (Heparin Sodium) 5,000 units SUBCUT Q12HR [facility] Last Admin: 09/08/17 08:33 Dose: 5,000 units Hydromorphone HCl (Dilaudid [employer] 6 Mg In Ns 30 Ml) 0 mg IV ASDIRECTED PRN; Protocol PRN Reason: Abdominal Pain Levofloxacin/Dextrose 750 mg/ (Premix) 150 mls @ 100 mls/hr IV Q24H [facility] Last Admin: 09/07/17 20:34 Dose: 100 mls/hr Metronidazole 250 mg/ Premix 50 mls @ 50 mls/hr IV QID [facility] Last Admin: 09/08/17 06:20 Dose: 50 mls/hr Magnesium Sulfate 4 gm/ Premix 100 mls @ 50 mls/hr IV ONETIME ONE Stop: 09/08/17 11:07 Last Admin: 09/08/17 09:35 Dose: 50 mls/hr Potassium Chloride/Dextrose/Sod Cl (D5 Ns With 20 Meq Kcl) 1,000 mls @ 100 mls/ hr IV ASDIRECTED [facility] Last Admin: 09/08/17 09:38 Dose: 100 mls/hr Labetalol HCl (Normodyne) 5 mg IVPUSH Q4H PRN; Protocol PRN Reason: Hypertension Ondansetron HCl (Zofran) 4 mg IVPUSH Q6H PRN PRN Reason: Nausea/Vomiting Pantoprazole Sodium (Protonix Iv) 40 mg IVPUSH DAILY@0730 [facility] Last Admin: 09/08/17 08:33 Dose: 40 mg Phenol/Menthol (Chloraseptic Throat [place]) 1 ml MUCMEM Q2H PRN PRN Reason: Sore Throat Last Admin: 09/07/17 06:16 Dose: 1 ml Discontinued Medications Bupivacaine HCl (Marcaine 0.5%) Confirm Administered Dose 30 ml .ROUTE .STK-MED ONE Stop: 09/06/17 21:40 Cefazolin Sodium (Ancef) Confirm Administered Dose 1 gm .ROUTE .STK-MED ONE Stop: 09/06/17 21:40 Ephedrine Sulfate (Ephedrine Sulfate) Confirm Administered Dose 50 mg .ROUTE .STK-MED ONE Stop: 09/06/17 22:26 Etomidate (Amidate) Confirm Administered Dose 40 mg IVPUSH .STK-MED ONE Stop: 09/06/17 21:54 Fentanyl (Sublimaze) Confirm Administered Dose 250 mcg .ROUTE .STK-MED ONE Stop: 09/06/17 21:54 Fentanyl (Sublimaze) 50 mcg IVPUSH Q5M PRN PRN Reason: Pain (severe 7-10) Stop: 09/08/17 00:33 Glycopyrrolate (Robinul) Confirm Administered Dose 0.2 mg .ROUTE .STK-MED ONE Stop: 09/06/17 22:28 Glycopyrrolate (Robinul) Confirm Administered Dose 0.2 mg .ROUTE .K-MED ONE Stop: 09/06/17 22:31 Hydromorphone HCl (Dilaudid) 0.5 mg IVPUSH Q1H PRN PRN Reason: Abdominal Pain Last Admin: 09/06/17 21:52 Dose: 0.5 mg Hydromorphone HCl (Dilaudid [employer] 6 Mg In Ns 30 Ml) 0.2 mg IV ASDIRECTED PRN; Protocol PRN Reason: Abdominal Pain Last Admin: 09/07/17 01:14 Dose: 6 mg Sodium Chloride (Normal Saline) 1,000 mls @ 999 mls/hr IV STAT ONE Stop: 09/06/17 19:52 Last Admin: 09/06/17 19:14 Dose: 999 mls/hr Lactated Ringer's (Ringers, Lactated) 1,000 mls @ 125 mls/hr IV ASDIRECTED [facility] Last Admin: 09/08/17 04:09 Dose: 125 mls/hr Sterile Water (Sterile Water For Injection) Confirm Administered Dose 20 mls @ as directed .ROUTE .[facility]-MED ONE Stop: 09/06/17 22:27 Lactated Ringer's (Ringers, Lactated) 1,000 mls @ 1,000 mls/hr IV .BOLUS [facility] Last Admin: 09/07/17 01:53 Dose: 1,000 mls/hr Lactated Ringer's (Ringers, Lactated) 1,000 mls @ 999 mls/hr IV ONETIME ONE Stop: 09/07/17 07:00 Last Admin: 09/07/17 06:16 Dose: 999 mls/hr Magnesium Sulfate 4 gm/ Premix 100 mls @ 50 mls/hr IV ONETIME ONE Stop: 09/07/17 10:19 Last Admin: 09/07/17 08:39 Dose: 50 mls/hr Sodium Phosphate 15 mmole/ (Sodium Chloride) 255 mls @ 42.5 mls/hr IV ASDIRECTED ONE Stop: 09/07/17 15:59 Last Admin: 09/07/17 10:37 Dose: 42.5 mls/hr Lactated Ringer's (Ringers, Lactated) 1,000 mls @ 999 mls/hr IV .BOLUS ONE Stop: 09/07/17 13:15 Last Admin: 09/07/17 12:23 Dose: 999 mls/hr Potassium Chloride/Dextrose/Sod Cl (D5 1/2 Ns W/ 20 Meq/L Kcl) 1,000 mls @ 100 mls/hr IV ASDIRECTED [facility] Iopamidol (Isovue Multipack-370 (76%)) 80 ml IVPUSH ONETIME ONE Stop: 09/06/17 20:23 Last Admin: 09/06/17 20:23 Dose: 80 ml Lidocaine (Xylocaine-Mpf 2%) Confirm Administered Dose 5 ml .ROUTE .STK-MED ONE Stop: 09/06/17 21:54 Midazolam HCl (Versed 1 Mg/Ml) Confirm Administered Dose 2 mg .ROUTE .STK-MED ONE Stop: 09/06/17 21:54 Neostigmine Methylsulfate (Neostigmine) Confirm Administered Dose 5 mg .ROUTE .STK-MED ONE Stop: 09/06/17 23:56 Ondansetron HCl (Zofran) 4 mg IVPUSH ONETIME ONE Stop: 09/06/17 18:53 Last Admin: 09/06/17 19:16 Dose: 4 mg Ondansetron HCl (Zofran) Confirm Administered Dose 4 mg .ROUTE .STK-MED ONE Stop: 09/06/17 21:54 Phenylephrine HCl (Phenylephrine In Ns 100 Mcg/Ml) Confirm Administered Dose 1 mg .ROUTE .STK-MED ONE Stop: 09/06/17 22:23 Phenylephrine HCl (Vladimir-Synephrine) Confirm Administered Dose 10 mg .ROUTE .STK- MED ONE Stop: 09/06/17 22:23 Rocuronium [place] (Zemuron) Confirm Administered Dose 100 mg .ROUTE .STK-MED ONE Stop: 09/06/17 21:54 Succinylcholine Chloride (Succinylcholine In Ns Pf) Confirm Administered Dose 200 mg .ROUTE .STK-MED ONE Stop: 09/06/17 21:54 - Exam Wound/Incisions: Healing Well, Other (Ailyn drains removed from RLQ incision. All incisions appear healthy with no signs of infection or wound breakdown. Drain with scant serous output. ) General: Alert, Oriented Neck: Supple Lungs: Clear to Auscultation, Normal Respiratory Effort Cardiovascular: Regular Rate, Regular Rhythm GI/Abdominal Exam: Soft, Non-Tender, No Mass, Distended - Problem List & Annotations (1) SBO (small bowel obstruction) SNOMED Code(s): 952882495 Code(s): K56.609 - UNSP INTESTNL OBST, UNSP TO PARTIAL VERSUS COMPLETE OBST Status: Acute Current Visit: Yes (2) Appendicitis SNOMED Code(s): 81147357 Code(s): K37 - UNSPECIFIED APPENDICITIS Status: Acute Current Visit: Yes - Problem List Review Problem List Initiated/Reviewed/Updated: Yes - My Orders Last 24 Hours: Active Orders 24 hr Category Date Time Status Transfer Patient (Change bed) [ADT] Routine ADT 09/08/17 09:50 Ordered Communication Order [RC] DAILY Care 09/08/17 09:35 Active Remove Gutierrez Catheter [Urinary Catheter Removal] [RC] Care 09/08/17 09:39 Active Per Unit Routine CBC WITH AUTO DIFF [HEME] AM Lab 09/09/17 05:11 Ordered CBC WITH AUTO DIFF [HEME] AM Lab 09/10/17 05:11 Ordered CBC WITH AUTO DIFF [HEME] AM Lab 09/11/17 05:11 Ordered MAGNESIUM [CHEM] AM Lab 09/09/17 05:11 Ordered MAGNESIUM [CHEM] AM Lab 09/10/17 05:11 Ordered MAGNESIUM [CHEM] AM Lab 09/11/17 05:11 Ordered PHOSPHORUS [CHEM] AM Lab 09/09/17 05:11 Ordered PHOSPHORUS [CHEM] AM Lab 09/10/17 05:11 Ordered PHOSPHORUS [CHEM] AM Lab 09/11/17 05:11 Ordered Dextrose 5%-0.9% NaCl with KCl [D5 NS with 20 mEq KCl] Med 09/08/17 09:30 Active 1,000 ml IV ASDIRECTED Heparin Sodium Med 09/07/17 21:00 Active 5,000 units SUBCUT Q12HR Magnesium Sulfate/Water [Magnesium Sulfate 4 GM in Med 09/08/17 09:08 Active Water 100 ML] 4 gm Premix Bag 1 bag IV ONETIME Medication Orders Diphenhydramine HCl (Benadryl) 50 mg IVPUSH Q4H PRN PRN Reason: Itching Heparin Sodium (Porcine) (Heparin Sodium) 5,000 units SUBCUT Q12HR [facility] Last Admin: 09/08/17 08:33 Dose: 5,000 units Admin: 09/07/17 20:03 Dose: 5,000 units Hydromorphone HCl (Dilaudid [employer] Operator 6 Mg In Ns 30 Ml) 0 mg IV ASDIRECTED PRN; Protocol PRN Reason: Abdominal Pain Levofloxacin/Dextrose 750 mg/ (Premix) 150 mls @ 100 mls/hr IV Q24H [facility] Last Admin: 09/07/17 20:34 Dose: 100 mls/hr Infusion: 09/06/17 23:23 Dose: 100 mls/hr Admin: 09/06/17 21:53 Dose: 100 mls/hr Metronidazole 250 mg/ Premix 50 mls @ 50 mls/hr IV QID [facility] Last Admin: 09/08/17 06:20 Dose: 50 mls/hr Infusion: 09/08/17 00:20 Dose: 50 mls/hr Admin: 09/07/17 23:20 Dose: 50 mls/hr Infusion: 09/07/17 18:00 Dose: 50 mls/hr Admin: 09/07/17 17:00 Dose: 50 mls/hr Infusion: 09/07/17 12:11 Dose: 50 mls/hr Admin: 09/07/17 11:11 Dose: 50 mls/hr Infusion: 09/07/17 06:39 Dose: 50 mls/hr Admin: 09/07/17 05:39 Dose: 50 mls/hr Admin: 09/07/17 01:53 Dose: Magnesium Sulfate 4 gm/ Premix 100 mls @ 50 mls/hr IV ONETIME ONE Stop: 09/08/17 11:07 Last Admin: 09/08/17 09:35 Dose: 50 mls/hr Potassium Chloride/Dextrose/Sod Cl (D5 Ns With 20 Meq Kcl) 1,000 mls @ 100 mls/ hr IV ASDIRECTED [facility] Last Admin: 09/08/17 09:38 Dose: 100 mls/hr Labetalol HCl (Normodyne) 5 mg IVPUSH Q4H PRN; Protocol PRN Reason: Hypertension Ondansetron HCl (Zofran) 4 mg IVPUSH Q6H PRN PRN Reason: Nausea/Vomiting Pantoprazole Sodium (Protonix Iv) 40 mg IVPUSH DAILY@0730 [facility] Last Admin: 09/08/17 08:33 Dose: 40 mg Admin: 09/07/17 07:43 Dose: 40 mg Phenol/Menthol (Chloraseptic Throat [place]) 1 ml MUCMEM Q2H PRN PRN Reason: Sore Throat Last Admin: 09/07/17 06:16 Dose: 1 ml - Assessment Assessment (Free Text/Narrative):: -Pain: Dilaudid QUALITY ASSURANCE DIRECTOR -CV: D/C cardiac monitoring. Encourage IS use. -GI: NPO. Remove NG if tolerating clamping trials. Ok to have ice chips. -Renal: BUN/Cr wnl. Mag replaced. Remove gutierrez. D/C LR and switch to D5 NS with KCl -ID: Continue IV zosyn -Px: protonix and heparin sub q Ok to transfer from ICU today
[2017-09-08] MEDS ORDERED: metroNIDAZOLE/Normal Saline 250 MG in Premix Bag 1 BAG IV SCH (18:00)
[2017-09-08] MEDS: Levofloxacin/Dextrose 5%-Water 750 MG in Premix Bag 1 BAG IV SCH (20:50)
[2017-09-09] MEDS ORDERED: metroNIDAZOLE/Normal Saline 250 MG in Premix Bag 1 BAG IV SCH ×2
[2017-09-09] MEDS: metroNIDAZOLE/Normal Saline 250 MG in Premix Bag 1 BAG IV SCH ×5 (00:03→23:06)
[2017-09-09 06:03] LABS: CHLORIDE,CL 106 mmol/L (98-107); SODIUM,NA 141 mmol/L (136-145)
[2017-09-09] MEDS: Heparin Sodium 5,000 Units/ML Vial SUBCUT SCH ×2 (08:28→20:31)
[2017-09-09] MEDS: Pantoprazole 40 MG Vial IVPUSH SCH (08:28)
[2017-09-09] MEDS ORDERED: HYDROmorphone 1 MG/ML Syringe IVPUSH PRN (08:41)
[2017-09-09] MEDS ORDERED: Magnesium Sulfate/Water 2 GM in Premix Bag 1 BAG IV ONE (08:42)
[2017-09-09] MEDS: Atenolol 50 MG Tab PO SCH (09:08)
[2017-09-09] MEDS: Omeprazole 20 MG Cap.CR PO SCH (09:08)
[2017-09-09] MEDS: Polyethylene Glycol 3350 Powder 17 GM Packet PO SCH (09:09)
[2017-09-09] MEDS: Phosphorus #1 250 MG Tab PO SCH ×3 (12:02→23:06)
[2017-09-09] MEDS: Dextrose 5%-0.9% NaCl with KCl 1,000 ML IV SCH (13:25)
[2017-09-09] MEDS: Ondansetron 4 MG/2 ML SDV IVPUSH PRN ×2 (16:01→22:19)
--- NOTE | 2017-09-09 16:06 | PCM.SN ---
- Free Text/Narrative Note: Came to see patient this afternoon. She is passing gas and had a BM this afternoon. She stated that she was tolerating a clear liquid diet when she suddenly vomited. She denied having felt nauseated up to that point. The RN will be administering zofran and we will switch the patient to NPO this evening except for ice chips and sips with meds. Most likely she is drinking too much and her bowel activity is not yet moving fast enough for the amount she is taking in. Will keep IVF running for now. She is complaining now of some discomfort radiating down her anterior leg. On physical exam her legs appear normal with no evidence of edema or swelling. This may be pain radiating from her incision. Will keep a close eye on her symptoms. If they worsen I may get an US of the RLE, however she has been on subq heparin since admission.
[2017-09-09] MEDS: Levofloxacin/Dextrose 5%-Water 750 MG in Premix Bag 1 BAG IV SCH (20:35)
[2017-09-09] MEDS: Phenol 1.4% Oral Spray 177 ML Bottle MUCMEM PRN (22:20)
[2017-09-10] MEDS: Dextrose 5%-0.9% NaCl with KCl 1,000 ML IV SCH (03:08)
[2017-09-10] MEDS: metroNIDAZOLE/Normal Saline 250 MG in Premix Bag 1 BAG IV SCH ×2 (05:18→11:17)
[2017-09-10] MEDS: Phosphorus #1 250 MG Tab PO SCH ×3 (05:18→17:41)
[2017-09-10] MEDS: Acetaminophen/oxyCODONE 325-5 MG Tab PO PRN ×3 (05:18→17:41)
[2017-09-10 05:54] LABS: CHLORIDE,CL 104 mmol/L (98-107); SODIUM,NA 142 mmol/L (136-145)
[2017-09-10] MEDS: Levothyroxine 75 MCG Tab PO SCH (06:32)
[2017-09-10] MEDS: Phenol 1.4% Oral Spray 177 ML Bottle MUCMEM PRN (06:34)
[2017-09-10] MEDS ORDERED: Magnesium Sulfate/Water 2 GM in Premix Bag 1 BAG IV ONE (07:45)
[2017-09-10] MEDS: Atenolol 50 MG Tab PO SCH (08:27)
[2017-09-10] MEDS: Omeprazole 20 MG Cap.CR PO SCH (08:27)
[2017-09-10] MEDS: Heparin Sodium 5,000 Units/ML Vial SUBCUT SCH ×2 (08:28→20:10)
[2017-09-10] MEDS: Polyethylene Glycol 3350 Powder 17 GM Packet PO SCH (09:54)
[2017-09-10] MEDS ORDERED: Furosemide 20 MG/2 ML VIAL IVPUSH ONE (13:09)
[2017-09-10] MEDS: Multivitamin Tab PO SCH (13:38)
[2017-09-10] MEDS ORDERED: metroNIDAZOLE 250 MG Tab PO SCH (14:45)
[2017-09-10] MEDS: metroNIDAZOLE 250 MG Tab PO SCH (17:42)
[2017-09-10] MEDS: Ciprofloxacin 500 MG Tab PO SCH (20:11)
[2017-09-11] MEDS: Phosphorus #1 250 MG Tab PO SCH ×3 (00:11→11:37)
[2017-09-11] MEDS: Acetaminophen/oxyCODONE 325-5 MG Tab PO PRN ×2 (00:11→04:56)
[2017-09-11] MEDS: metroNIDAZOLE 250 MG Tab PO SCH ×3 (00:11→11:37)
[2017-09-11] MEDS: Levothyroxine 75 MCG Tab PO SCH (06:57)
[2017-09-11] MEDS: Ciprofloxacin 500 MG Tab PO SCH (08:29)
[2017-09-11] MEDS: Omeprazole 20 MG Cap.CR PO SCH (08:30)
[2017-09-11] MEDS: Heparin Sodium 5,000 Units/ML Vial SUBCUT SCH (08:30)
[2017-09-11] MEDS: Multivitamin Tab PO SCH (08:31)
[2017-09-11] MEDS: Atenolol 50 MG Tab PO SCH (08:32)
[2017-09-11] MEDS: Polyethylene Glycol 3350 Powder 17 GM Packet PO SCH (08:33)
--- NOTE | 2017-09-11 15:01 | PCM.DCSUM1 ---
Discharge Summary - Hospital Course Free Text/Narrative:: Patient is a 67 year old female who presented to the ED with 9 days of abdominal pain. She had been seen earlier in the week and was told she may have diverticulosis. She developed increasing pain then nausea and vomiting. Her WBC in the ED was elevated. Her UA revealed a UTI. A CT of the abdomen pelvis showed acute appendicitis and an associated SBO. She was taken to the OR for a laparoscopic appendectomy. It was converted to open when the patient was noted to have a necrotic appendicile base with a large opening into the cecum. This was associated with an abscess. The appendix was excised off the cecum sharply to healthy tissue and the opening closed. The patient had an NG placed intraoperatively. She was taken to the PACU in stable condition. Her UOP was marginal and her heart rate elevated postoperatively. She was monitored closely in the ICU. Her NG had nominal output. She recieved several boluses of fluid and was given aggressive resuscitation. Her labs the next day were improved including her BUN/Cr. Slowly her BP elevated, her HR came down to normal and her UOP improved. On POD #2 her NG was removed. Her incisions appeared to be healing well. Her intra-abdominal drain had scant output so it was removed. The next day she was started on a clear liquid diet. By the end of POD #3 she was passing gas and had a BM. Unfortunately she then had a couple small emesis. She was kept NPO. The next day she was feeling better. Her diet was advanced without difficulty. She had another BM. She was transitioned to oral antibiotics. Today she is ambulating, urinating without difficulty, on her home medications, tolerating a diet and her vitals are stable. She was cleared to go home. - Discharge Data Discharge Date: 09/11/17 Discharge Disposition: Home, Self-Care 01 Condition: Fair - Discharge Diagnosis/Problem(s) (1) SBO (small bowel obstruction) SNOMED Code(s): 537802944 ICD Code: K56.609 - UNSP INTESTNL OBST, UNSP TO PARTIAL VERSUS COMPLETE OBST Status: Acute Current Visit: Yes (2) Appendicitis SNOMED Code(s): 21573714 ICD Code: K37 - UNSPECIFIED APPENDICITIS Status: Acute Current Visit: Yes - Patient Summary/Data Operative Procedure(s) Performed: Laparoscopic converted to open appendectomy - Patient Instructions Diet: Regular Diet as Tolerated Activity: No Lifting Over 20 Pounds (for six weeks after surgery ), Rest and Relax Today Driving: Do Not Drive Showering/Bathing: May Shower, No Tub Bathing/Swimming (for two weeks after surgery) Wound/Incision Care: Keep Operative Site/Wound Site Clean and Dry Notify Provider of: Fever, Increased Pain, Swelling and Redness, Drainage, Nausea and/or Vomiting - Discharge Plan Prescriptions/Med Rec: Ciprofloxacin [IJD: Ciprofloxacin HCl] 500 mg PO BID #7 tablet metroNIDAZOLE 250 mg PO Q6H #15 tablet Home Medications: Home Meds Aspirin 325 mg PO DAILY 09/06/17 [History] Atenolol [Tenormin] 50 mg PO DAILY 09/06/17 [History] Levothyroxine 75 mcg PO DAILY 09/06/17 [History] atorvaSTATin [Lipitor] 80 mg PO DAILY 09/06/17 [History] Ciprofloxacin [IJD: Ciprofloxacin HCl] 500 mg PO BID #7 tablet 09/11/17 [Rx] metroNIDAZOLE 250 mg PO Q6H #15 tablet 09/11/17 [Rx] Patient Handouts: Laparoscopic Appendectomy, Adult, Care After, Oxycodone tablets or capsules, Ciprofloxacin tablets, Metronidazole tablets or capsules Referrals: Edna De Los Santos MD [Physician] - 09/26/17 11:30 am - Discharge Summary/Plan Comment DC Time >30 min.: No - General Info Functional Status: Reports: Pain Controlled, Tolerating Diet, Ambulating, Urinating - Review of Systems General: Reports: No Symptoms Pulmonary: Reports: No Symptoms Cardiovascular: Reports: No Symptoms Gastrointestinal: Reports: No Symptoms Genitourinary: Reports: No Symptoms - Patient Data Vitals - Most Recent: Last Vital Signs Temp 37.1 C 09/11/17 11:46 Pulse 73 09/11/17 11:46 Resp 18 09/11/17 11:46 BP 142/92 H 09/11/17 11:46 Pulse Ox 91 L 09/11/17 11:46 Weight - Most Recent: 76 kg I&O - Last 24 hours: Intake & Output 09/10/17 09/11/17 09/11/17 22:59 06:59 14:59 Intake Total 1680 596 Output Total 300 Balance 1380 596 Med Orders - Current: Current Medications Atenolol (Tenormin) 50 mg PO DAILY [facility] Last Admin: 09/11/17 08:32 Dose: 50 mg Ciprofloxacin (Ciprofloxacin Hcl) 500 mg PO BID [facility] Last Admin: 09/11/17 08:29 Dose: 500 mg Diphenhydramine HCl (Benadryl) 50 mg IVPUSH Q4H PRN PRN Reason: Itching Heparin Sodium (Porcine) (Heparin Sodium) 5,000 units SUBCUT Q12HR [facility] Last Admin: 09/11/17 08:30 Dose: 5,000 units Hydromorphone HCl (Dilaudid) 0.5 mg IVPUSH Q1H PRN PRN Reason: Pain Last Admin: 09/09/17 16:22 Dose: 0.5 mg Levothyroxine Sodium (Levothyroxine) 75 mcg PO ACBREAKFAST [facility] Last Admin: 09/11/17 06:57 Dose: 75 mcg Metronidazole (Metronidazole) 250 mg PO Q6H [facility] Last Admin: 09/11/17 11:37 Dose: 250 mg Multivitamins/Minerals/Vitamin C (Tab-A-Gris) 1 tab PO DAILY [facility] Last Admin: 09/11/17 08:31 Dose: 1 tab Omeprazole (Omeprazole) 20 mg PO DAILY [facility] Last Admin: 09/11/17 08:30 Dose: 20 mg Ondansetron HCl (Zofran) 4 mg IVPUSH Q6H PRN PRN Reason: Nausea/Vomiting Last Admin: 09/09/17 22:19 Dose: 4 mg Oxycodone/Acetaminophen (Percocet 325-5 Mg) 2 tab PO Q4H PRN PRN Reason: Pain Last Admin: 09/11/17 04:56 Dose: 1 tab Phenol/Menthol (Chloraseptic Throat [place]) 1 ml MUCMEM Q2H PRN PRN Reason: Sore Throat Last Admin: 09/10/17 06:34 Dose: 1 ml Polyethylene Glycol (Miralax) 17 gm PO DAILY [facility] Last Admin: 09/11/17 08:33 Dose: Not Given Senna/Docusate Sodium (Senna Plus) 1 tab PO BEDTIME [facility] Last Admin: 09/10/17 20:11 Dose: 1 tab Sodium Phosphate (Neutra-Phos) 250 mg PO QID [facility] Last Admin: 09/11/17 11:37 Dose: 250 mg Discontinued Medications Bupivacaine HCl (Marcaine 0.5%) Confirm Administered Dose 30 ml .ROUTE .STK-MED ONE Stop: 09/06/17 21:40 Cefazolin Sodium (Ancef) Confirm Administered Dose 1 gm .ROUTE .STK-MED ONE Stop: 09/06/17 21:40 Ephedrine Sulfate (Ephedrine Sulfate) Confirm Administered Dose 50 mg .ROUTE .STK-MED ONE Stop: 09/06/17 22:26 Etomidate (Amidate) Confirm Administered Dose 40 mg IVPUSH .STK-MED ONE Stop: 09/06/17 21:54 Fentanyl (Sublimaze) Confirm Administered Dose 250 mcg .ROUTE .STK-MED ONE Stop: 09/06/17 21:54 Fentanyl (Sublimaze) 50 mcg IVPUSH Q5M PRN PRN Reason: Pain (severe 7-10) Stop: 09/08/17 00:33 Furosemide (Lasix) 10 mg IVPUSH NOW ONE Stop: 09/10/17 13:10 Last Admin: 09/10/17 13:35 Dose: 10 mg Glycopyrrolate (Robinul) Confirm Administered Dose 0.2 mg .ROUTE .STK-MED ONE Stop: 09/06/17 22:28 Glycopyrrolate (Robinul) Confirm Administered Dose 0.2 mg .ROUTE .STK-MED ONE Stop: 09/06/17 22:31 Hydromorphone HCl (Dilaudid) 0.5 mg IVPUSH Q1H PRN PRN Reason: Abdominal Pain Last Admin: 09/06/17 21:52 Dose: 0.5 mg Hydromorphone HCl (Dilaudid [employer] Ump[employer] 6 Mg In Ns 30 Ml) 0.2 mg IV ASDIRECTED PRN; Protocol PRN Reason: Abdominal Pain Last Admin: 09/07/17 01:14 Dose: 6 mg Hydromorphone HCl (Dilaudid [employer] Umpire 6 Mg In Ns 30 Ml) 0 mg IV ASDIRECTED PRN; Protocol PRN Reason: Abdominal Pain Last Admin: 09/08/17 16:27 Dose: 6 mg Sodium Chloride (Normal Saline) 1,000 mls @ 999 mls/hr IV STAT ONE Stop: 09/06/17 19:52 Last Admin: 09/06/17 19:14 Dose: 999 mls/hr Levofloxacin/Dextrose 750 mg/ (Premix) 150 mls @ 100 mls/hr IV Q24H [facility] Last Admin: 09/09/17 20:35 Dose: 100 mls/hr Metronidazole 250 mg/ Premix 50 mls @ 50 mls/hr IV QID [facility] Last Admin: 09/08/17 14:10 Dose: 50 mls/hr Lactated Ringer's (Ringers, Lactated) 1,000 mls @ 125 mls/hr IV ASDIRECTED [facility] Last Admin: 09/08/17 04:09 Dose: 125 mls/hr Sterile Water (Sterile Water For Injection) Confirm Administered Dose 20 mls @ as directed .ROUTE .STK-MED ONE Stop: 09/06/17 22:27 Lactated Ringer's (Ringers, Lactated) 1,000 mls @ 1,000 mls/hr IV .BOLUS [facility] Last Admin: 09/07/17 01:53 Dose: 1,000 mls/hr Lactated Ringer's (Ringers, Lactated) 1,000 mls @ 999 mls/hr IV ONETIME ONE Stop: 09/07/17 07:00 Last Admin: 09/07/17 06:16 Dose: 999 mls/hr Magnesium Sulfate 4 gm/ Premix 100 mls @ 50 mls/hr IV ONETIME ONE Stop: 09/07/17 10:19 Last Admin: 09/07/17 08:39 Dose: 50 mls/hr Sodium Phosphate 15 mmole/ (Sodium Chloride) 255 mls @ 42.5 mls/hr IV ASDIRECTED ONE Stop: 09/07/17 15:59 Last Admin: 09/07/17 10:37 Dose: 42.5 mls/hr Lactated Ringer's (Ringers, Lactated) 1,000 mls @ 999 mls/hr IV .BOLUS ONE Stop: 09/07/17 13:15 Last Admin: 09/07/17 12:23 Dose: 999 mls/hr Magnesium Sulfate 4 gm/ Premix 100 mls @ 50 mls/hr IV ONETIME ONE Stop: 09/08/17 11:07 Last Admin: 09/08/17 09:35 Dose: 50 mls/hr Potassium Chloride/Dextrose/Sod Cl (D5 1/2 Ns W/ 20 Meq/L Kcl) 1,000 mls @ 100 mls/hr IV ASDIRECTED [facility] Potassium Chloride/Dextrose/Sod Cl (D5 Ns With 20 Meq Kcl) 1,000 mls @ 100 mls/ hr IV ASDIRECTED [facility] Last Admin: 09/10/17 03:08 Dose: 100 mls/hr Metronidazole 250 mg/ Premix 50 mls @ 50 mls/hr IV QID [facility] Metronidazole 250 mg/ Premix 50 mls @ 50 mls/hr IV QID [facility] Last Admin: 09/10/17 11:17 Dose: 50 mls/hr Magnesium Sulfate 2 gm/ Premix 50 mls @ 50 mls/hr IV ONETIME ONE Stop: 09/09/17 09:41 Last Admin: 09/09/17 09:10 Dose: 50 mls/hr Magnesium Sulfate 2 gm/ Premix 50 mls @ 50 mls/hr IV ONETIME ONE Stop: 09/10/17 08:44 Last Admin: 09/10/17 08:16 Dose: 50 mls/hr Iopamidol (Isovue Multipack-370 (76%)) 80 ml IVPUSH ONETIME ONE Stop: 09/06/17 20:23 Last Admin: 09/06/17 20:23 Dose: 80 ml Labetalol HCl (Normodyne) 5 mg IVPUSH Q4H PRN; Protocol PRN Reason: Hypertension Lidocaine (Xylocaine-Mpf 2%) Confirm Administered Dose 5 ml .ROUTE .STK-MED ONE Stop: 09/06/17 21:54 Metronidazole (Metronidazole) 250 mg PO Q6H [facility] Last Admin: 09/10/17 15:58 Dose: Not Given Midazolam HCl (Versed 1 Mg/Ml) Confirm Administered Dose 2 mg .ROUTE .STK-MED ONE Stop: 09/06/17 21:54 Neostigmine Methylsulfate (Neostigmine) Confirm Administered Dose 5 mg .ROUTE .STK-MED ONE Stop: 09/06/17 23:56 Ondansetron HCl (Zofran) 4 mg IVPUSH ONETIME ONE Stop: 09/06/17 18:53 Last Admin: 09/06/17 19:16 Dose: 4 mg Ondansetron HCl (Zofran) Confirm Administered Dose 4 mg .ROUTE .STK-MED ONE Stop: 09/06/17 21:54 Pantoprazole Sodium (Protonix Iv) 40 mg IVPUSH DAILY@0730 [facility] Last Admin: 09/09/17 08:28 Dose: 40 mg Phenylephrine HCl (Phenylephrine In Ns 100 Mcg/Ml) Confirm Administered Dose 1 mg .ROUTE .STK-MED ONE Stop: 09/06/17 22:23 Phenylephrine HCl (Vladimir-Synephrine) Confirm Administered Dose 10 mg .ROUTE .STK- MED ONE Stop: 09/06/17 22:23 Rocuronium [place] (Zemuron) Confirm Administered Dose 100 mg .ROUTE .STK-MED ONE Stop: 09/06/17 21:54 Succinylcholine Chloride (Succinylcholine In Ns Pf) Confirm Administered Dose 200 mg .ROUTE .STK-MED ONE Stop: 09/06/17 21:54 - Exam General: Reports: Alert, Oriented Lungs: Reports: Normal Respiratory Effort Cardiovascular: Reports: Regular Rate, Regular Rhythm GI/Abdominal Exam: Soft, Non-Tender, No Distention, No Mass, Other (Incisions appear to be well healing with no erythema, warmth or drainage. ) Back Exam: Reports: Normal Inspection *Q Meaningful Use (DIS) - VTE *Q VTE Criteria *Q: - Stroke *Q Stroke Criteria *Q: - AMI *Q AMI Criteria *Q:
--- NOTE | 2017-09-12 14:41 | PCM.SURGPN ---
- General Info Date of Service: 09/10/17 Date of Surgery/Procedure: 09/06/17 POD#: 4 Functional Status: Reports: Pain Controlled, Tolerating Diet, Ambulating, Urinating - Review of Systems General: Reports: No Symptoms Pulmonary: Reports: No Symptoms Cardiovascular: Reports: No Symptoms Gastrointestinal: Reports: No Symptoms - Patient Data Vitals - Most Recent: Last Vital Signs Temp 37.1 C 09/11/17 11:46 Pulse 73 09/11/17 11:46 Resp 18 09/11/17 11:46 BP 142/92 H 09/11/17 11:46 Pulse Ox 91 L 09/11/17 11:46 Weight - Most Recent: 76 kg Med Orders - Current: Current Medications Discontinued Medications Atenolol (Tenormin) 50 mg PO DAILY [facility] Last Admin: 09/11/17 08:32 Dose: 50 mg Bupivacaine HCl (Marcaine 0.5%) Confirm Administered Dose 30 ml .ROUTE .STK-MED ONE Stop: 09/06/17 21:40 Cefazolin Sodium (Ancef) Confirm Administered Dose 1 gm .ROUTE .STK-MED ONE Stop: 09/06/17 21:40 Ciprofloxacin (Ciprofloxacin Hcl) 500 mg PO BID [facility] Last Admin: 09/11/17 08:29 Dose: 500 mg Diphenhydramine HCl (Benadryl) 50 mg IVPUSH Q4H PRN PRN Reason: Itching Ephedrine Sulfate (Ephedrine Sulfate) Confirm Administered Dose 50 mg .ROUTE .STK-MED ONE Stop: 09/06/17 22:26 Etomidate (Amidate) Confirm Administered Dose 40 mg IVPUSH .STK-MED ONE Stop: 09/06/17 21:54 Fentanyl (Sublimaze) Confirm Administered Dose 250 mcg .ROUTE .STK-MED ONE Stop: 09/06/17 21:54 Fentanyl (Sublimaze) 50 mcg IVPUSH Q5M PRN PRN Reason: Pain (severe 7-10) Stop: 09/08/17 00:33 Furosemide (Lasix) 10 mg IVPUSH NOW ONE Stop: 09/10/17 13:10 Last Admin: 09/10/17 13:35 Dose: 10 mg Glycopyrrolate (Robinul) Confirm Administered Dose 0.2 mg .ROUTE .STK-MED ONE Stop: 09/06/17 22:28 Glycopyrrolate (Robinul) Confirm Administered Dose 0.2 mg .ROUTE .K-MED ONE Stop: 09/06/17 22:31 Heparin Sodium (Porcine) (Heparin Sodium) 5,000 units SUBCUT Q12HR [facility] Last Admin: 09/11/17 08:30 Dose: 5,000 units Hydromorphone HCl (Dilaudid) 0.5 mg IVPUSH Q1H PRN PRN Reason: Abdominal Pain Last Admin: 09/06/17 21:52 Dose: 0.5 mg Hydromorphone HCl (Dilaudid [place] 6 Mg In Ns 30 Ml) 0.2 mg IV ASDIRECTED PRN; Protocol PRN Reason: Abdominal Pain Last Admin: 09/07/17 01:14 Dose: 6 mg Hydromorphone HCl (Dilaudid [place] 6 Mg In Ns 30 Ml) 0 mg IV ASDIRECTED PRN; Protocol PRN Reason: Abdominal Pain Last Admin: 09/08/17 16:27 Dose: 6 mg Hydromorphone HCl (Dilaudid) 0.5 mg IVPUSH Q1H PRN PRN Reason: Pain Last Admin: 09/09/17 16:22 Dose: 0.5 mg Sodium Chloride (Normal Saline) 1,000 mls @ 999 mls/hr IV STAT ONE Stop: 09/06/17 19:52 Last Admin: 09/06/17 19:14 Dose: 999 mls/hr Levofloxacin/Dextrose 750 mg/ (Premix) 150 mls @ 100 mls/hr IV Q24H [facility] Last Admin: 09/09/17 20:35 Dose: 100 mls/hr Metronidazole 250 mg/ Premix 50 mls @ 50 mls/hr IV QID [facility] Last Admin: 09/08/17 14:10 Dose: 50 mls/hr Lactated Ringer's (Ringers, Lactated) 1,000 mls @ 125 mls/hr IV ASDIRECTED [facility] Last Admin: 09/08/17 04:09 Dose: 125 mls/hr Sterile Water (Sterile Water For Injection) Confirm Administered Dose 20 mls @ as directed .ROUTE .STK-MED ONE Stop: 09/06/17 22:27 Lactated Ringer's (Ringers, Lactated) 1,000 mls @ 1,000 mls/hr IV .BOLUS [facility] Last Admin: 09/07/17 01:53 Dose: 1,000 mls/hr Lactated Ringer's (Ringers, Lactated) 1,000 mls @ 999 mls/hr IV ONETIME ONE Stop: 09/07/17 07:00 Last Admin: 09/07/17 06:16 Dose: 999 mls/hr Magnesium Sulfate 4 gm/ Premix 100 mls @ 50 mls/hr IV ONETIME ONE Stop: 09/07/17 10:19 Last Admin: 09/07/17 08:39 Dose: 50 mls/hr Sodium Phosphate 15 mmole/ (Sodium Chloride) 255 mls @ 42.5 mls/hr IV ASDIRECTED ONE Stop: 09/07/17 15:59 Last Admin: 09/07/17 10:37 Dose: 42.5 mls/hr Lactated Ringer's (Ringers, Lactated) 1,000 mls @ 999 mls/hr IV .BOLUS ONE Stop: 09/07/17 13:15 Last Admin: 09/07/17 12:23 Dose: 999 mls/hr Magnesium Sulfate 4 gm/ Premix 100 mls @ 50 mls/hr IV ONETIME ONE Stop: 09/08/17 11:07 Last Admin: 09/08/17 09:35 Dose: 50 mls/hr Potassium Chloride/Dextrose/Sod Cl (D5 1/2 Ns W/ 20 Meq/L Kcl) 1,000 mls @ 100 mls/hr IV ASDIRECTED SONY Potassium Chloride/Dextrose/Sod Cl (D5 Ns With 20 Meq Kcl) 1,000 mls @ 100 mls/ hr IV ASDIRECTED SONY Last Admin: 09/10/17 03:08 Dose: 100 mls/hr Metronidazole 250 mg/ Premix 50 mls @ 50 mls/hr IV QID SONY Metronidazole 250 mg/ Premix 50 mls @ 50 mls/hr IV QID SONY Last Admin: 09/10/17 11:17 Dose: 50 mls/hr Magnesium Sulfate 2 gm/ Premix 50 mls @ 50 mls/hr IV ONETIME ONE Stop: 09/09/17 09:41 Last Admin: 09/09/17 09:10 Dose: 50 mls/hr Magnesium Sulfate 2 gm/ Premix 50 mls @ 50 mls/hr IV ONETIME ONE Stop: 09/10/17 08:44 Last Admin: 09/10/17 08:16 Dose: 50 mls/hr Iopamidol (Isovue Multipack-370 (76%)) 80 ml IVPUSH ONETIME ONE Stop: 09/06/17 20:23 Last Admin: 09/06/17 20:23 Dose: 80 ml Labetalol HCl (Normodyne) 5 mg IVPUSH Q4H PRN; Protocol PRN Reason: Hypertension Levothyroxine Sodium (Levothyroxine) 75 mcg PO ACBREAKFAST [facility] Last Admin: 09/11/17 06:57 Dose: 75 mcg Lidocaine (Xylocaine-Mpf 2%) Confirm Administered Dose 5 ml .ROUTE .STK-MED ONE Stop: 09/06/17 21:54 Metronidazole (Metronidazole) 250 mg PO Q6H [facility] Last Admin: 09/10/17 15:58 Dose: Not Given Metronidazole (Metronidazole) 250 mg PO Q6H [facility] Last Admin: 09/11/17 11:37 Dose: 250 mg Midazolam HCl (Versed 1 Mg/Ml) Confirm Administered Dose 2 mg .ROUTE .STK-MED ONE Stop: 09/06/17 21:54 Multivitamins/Minerals/Vitamin C (Tab-A-Gris) 1 tab PO DAILY [facility] Last Admin: 09/11/17 08:31 Dose: 1 tab Neostigmine Methylsulfate (Neostigmine) Confirm Administered Dose 5 mg .ROUTE .STK-MED ONE Stop: 09/06/17 23:56 Omeprazole (Omeprazole) 20 mg PO DAILY [facility] Last Admin: 09/11/17 08:30 Dose: 20 mg Ondansetron HCl (Zofran) 4 mg IVPUSH ONETIME ONE Stop: 09/06/17 18:53 Last Admin: 09/06/17 19:16 Dose: 4 mg Ondansetron HCl (Zofran) Confirm Administered Dose 4 mg .ROUTE .STK-MED ONE Stop: 09/06/17 21:54 Ondansetron HCl (Zofran) 4 mg IVPUSH Q6H PRN PRN Reason: Nausea/Vomiting Last Admin: 09/09/17 22:19 Dose: 4 mg Oxycodone/Acetaminophen (Percocet 325-5 Mg) 2 tab PO Q4H PRN PRN Reason: Pain Last Admin: 09/11/17 04:56 Dose: 1 tab Pantoprazole Sodium (Protonix Iv) 40 mg IVPUSH DAILY@0730 [facility] Last Admin: 09/09/17 08:28 Dose: 40 mg Phenol/Menthol (Chloraseptic Throat [place]) 1 ml MUCMEM Q2H PRN PRN Reason: Sore Throat Last Admin: 09/10/17 06:34 Dose: 1 ml Phenylephrine HCl (Phenylephrine In Ns 100 Mcg/Ml) Confirm Administered Dose 1 mg .ROUTE .STK-MED ONE Stop: 09/06/17 22:23 Phenylephrine HCl (Vladimir-Synephrine) Confirm Administered Dose 10 mg .ROUTE .STK- MED ONE Stop: 09/06/17 22:23 Polyethylene Glycol (Miralax) 17 gm PO DAILY [facility] Last Admin: 09/11/17 08:33 Dose: Not Given Rocuronium [place] (Zemuron) Confirm Administered Dose 100 mg .ROUTE .STK-MED ONE Stop: 09/06/17 21:54 Senna/Docusate Sodium (Senna Plus) 1 tab PO BEDTIME [facility] Last Admin: 09/10/17 20:11 Dose: 1 tab Sodium Phosphate (Neutra-Phos) 250 mg PO QID [facility] Last Admin: 09/11/17 11:37 Dose: 250 mg Succinylcholine Chloride (Succinylcholine In Ns Pf) Confirm Administered Dose 200 mg .ROUTE .STK-MED ONE Stop: 09/06/17 21:54 - Exam Wound/Incisions: Healing Well, No Drainage Lungs: Normal Respiratory Effort Cardiovascular: Regular Rate GI/Abdominal Exam: Soft, Non-Tender, No Distention, No Mass - Problem List & Annotations (1) SBO (small bowel obstruction) SNOMED Code(s): 711342481 Code(s): K56.609 - UNSP INTESTNL OBST, UNSP TO PARTIAL VERSUS COMPLETE OBST Status: Acute (2) Appendicitis SNOMED Code(s): 80019472 Code(s): K37 - UNSPECIFIED APPENDICITIS Status: Acute - Problem List Review Problem List Initiated/Reviewed/Updated: Yes - Plan Plan (Free Text/Narrative):: Advance diet to clears and advance as tolerated. Will D/C IVF and switch patient to oral antibiotics if tolerated. If able to advance diet without difficulty will possibly d/c home tomorrow.
--- NOTE | 2017-09-12 14:46 | PCM.SURGPN ---
- General Info Date of Service: 09/09/17 Date of Surgery/Procedure: 09/06/17 POD#: 3 Functional Status: Reports: Pain Controlled, Incentive Spirometry, Other (No flatus yet. Feels slightly bloated. ) - Review of Systems General: Reports: No Symptoms Pulmonary: Reports: No Symptoms Cardiovascular: Reports: No Symptoms Gastrointestinal: Reports: No Symptoms - Patient Data Vitals - Most Recent: Last Vital Signs Temp 37.1 C 09/11/17 11:46 Pulse 73 09/11/17 11:46 Resp 18 09/11/17 11:46 BP 142/92 H 09/11/17 11:46 Pulse Ox 91 L 09/11/17 11:46 Weight - Most Recent: 76 kg Med Orders - Current: Current Medications Discontinued Medications Atenolol (Tenormin) 50 mg PO DAILY [facility] Last Admin: 09/11/17 08:32 Dose: 50 mg Bupivacaine HCl (Marcaine 0.5%) Confirm Administered Dose 30 ml .ROUTE .STK-MED ONE Stop: 09/06/17 21:40 Cefazolin Sodium (Ancef) Confirm Administered Dose 1 gm .ROUTE .STK-MED ONE Stop: 09/06/17 21:40 Ciprofloxacin (Ciprofloxacin Hcl) 500 mg PO BID [facility] Last Admin: 09/11/17 08:29 Dose: 500 mg Diphenhydramine HCl (Benadryl) 50 mg IVPUSH Q4H PRN PRN Reason: Itching Ephedrine Sulfate (Ephedrine Sulfate) Confirm Administered Dose 50 mg .ROUTE .STK-MED ONE Stop: 09/06/17 22:26 Etomidate (Amidate) Confirm Administered Dose 40 mg IVPUSH .STK-MED ONE Stop: 09/06/17 21:54 Fentanyl (Sublimaze) Confirm Administered Dose 250 mcg .ROUTE .STK-MED ONE Stop: 09/06/17 21:54 Fentanyl (Sublimaze) 50 mcg IVPUSH Q5M PRN PRN Reason: Pain (severe 7-10) Stop: 09/08/17 00:33 Furosemide (Lasix) 10 mg IVPUSH NOW ONE Stop: 09/10/17 13:10 Last Admin: 09/10/17 13:35 Dose: 10 mg Glycopyrrolate (Robinul) Confirm Administered Dose 0.2 mg .ROUTE .STK-MED ONE Stop: 09/06/17 22:28 Glycopyrrolate (Robinul) Confirm Administered Dose 0.2 mg .ROUTE .[facility] ONE Stop: 09/06/17 22:31 Heparin Sodium (Porcine) (Heparin Sodium) 5,000 units SUBCUT Q12HR [facility] Last Admin: 09/11/17 08:30 Dose: 5,000 units Hydromorphone HCl (Dilaudid) 0.5 mg IVPUSH Q1H PRN PRN Reason: Abdominal Pain Last Admin: 09/06/17 21:52 Dose: 0.5 mg Hydromorphone HCl (Dilaudid [place] 6 Mg In Ns 30 Ml) 0.2 mg IV ASDIRECTED PRN; Protocol PRN Reason: Abdominal Pain Last Admin: 09/07/17 01:14 Dose: 6 mg Hydromorphone HCl (Dilaudid [place] 6 Mg In Ns 30 Ml) 0 mg IV ASDIRECTED PRN; Protocol PRN Reason: Abdominal Pain Last Admin: 09/08/17 16:27 Dose: 6 mg Hydromorphone HCl (Dilaudid) 0.5 mg IVPUSH Q1H PRN PRN Reason: Pain Last Admin: 09/09/17 16:22 Dose: 0.5 mg Sodium Chloride (Normal Saline) 1,000 mls @ 999 mls/hr IV STAT ONE Stop: 09/06/17 19:52 Last Admin: 09/06/17 19:14 Dose: 999 mls/hr Levofloxacin/Dextrose 750 mg/ (Premix) 150 mls @ 100 mls/hr IV Q24H [facility] Last Admin: 09/09/17 20:35 Dose: 100 mls/hr Metronidazole 250 mg/ Premix 50 mls @ 50 mls/hr IV QID [facility] Last Admin: 09/08/17 14:10 Dose: 50 mls/hr Lactated Ringer's (Ringers, Lactated) 1,000 mls @ 125 mls/hr IV ASDIRECTED [facility] Last Admin: 09/08/17 04:09 Dose: 125 mls/hr Sterile Water (Sterile Water For Injection) Confirm Administered Dose 20 mls @ as directed .ROUTE .[facility]-MED ONE Stop: 09/06/17 22:27 Lactated Ringer's (Ringers, Lactated) 1,000 mls @ 1,000 mls/hr IV .BOLUS SONY Last Admin: 09/07/17 01:53 Dose: 1,000 mls/hr Lactated Ringer's (Ringers, Lactated) 1,000 mls @ 999 mls/hr IV ONETIME ONE Stop: 09/07/17 07:00 Last Admin: 09/07/17 06:16 Dose: 999 mls/hr Magnesium Sulfate 4 gm/ Premix 100 mls @ 50 mls/hr IV ONETIME ONE Stop: 09/07/17 10:19 Last Admin: 09/07/17 08:39 Dose: 50 mls/hr Sodium Phosphate 15 mmole/ (Sodium Chloride) 255 mls @ 42.5 mls/hr IV ASDIRECTED ONE Stop: 09/07/17 15:59 Last Admin: 09/07/17 10:37 Dose: 42.5 mls/hr Lactated Ringer's (Ringers, Lactated) 1,000 mls @ 999 mls/hr IV .BOLUS ONE Stop: 09/07/17 13:15 Last Admin: 09/07/17 12:23 Dose: 999 mls/hr Magnesium Sulfate 4 gm/ Premix 100 mls @ 50 mls/hr IV ONETIME ONE Stop: 09/08/17 11:07 Last Admin: 09/08/17 09:35 Dose: 50 mls/hr Potassium Chloride/Dextrose/Sod Cl (D5 1/2 Ns W/ 20 Meq/L Kcl) 1,000 mls @ 100 mls/hr IV ASDIRECTED SONY Potassium Chloride/Dextrose/Sod Cl (D5 Ns With 20 Meq Kcl) 1,000 mls @ 100 mls/ hr IV ASDIRECTED SONY Last Admin: 09/10/17 03:08 Dose: 100 mls/hr Metronidazole 250 mg/ Premix 50 mls @ 50 mls/hr IV QID SONY Metronidazole 250 mg/ Premix 50 mls @ 50 mls/hr IV QID [facility] Last Admin: 09/10/17 11:17 Dose: 50 mls/hr Magnesium Sulfate 2 gm/ Premix 50 mls @ 50 mls/hr IV ONETIME ONE Stop: 09/09/17 09:41 Last Admin: 09/09/17 09:10 Dose: 50 mls/hr Magnesium Sulfate 2 gm/ Premix 50 mls @ 50 mls/hr IV ONETIME ONE Stop: 09/10/17 08:44 Last Admin: 09/10/17 08:16 Dose: 50 mls/hr Iopamidol (Isovue Multipack-370 (76%)) 80 ml IVPUSH ONETIME ONE Stop: 09/06/17 20:23 Last Admin: 09/06/17 20:23 Dose: 80 ml Labetalol HCl (Normodyne) 5 mg IVPUSH Q4H PRN; Protocol PRN Reason: Hypertension Levothyroxine Sodium (Levothyroxine) 75 mcg PO ACBREAKFAST [facility] Last Admin: 09/11/17 06:57 Dose: 75 mcg Lidocaine (Xylocaine-Mpf 2%) Confirm Administered Dose 5 ml .ROUTE .STK-MED ONE Stop: 09/06/17 21:54 Metronidazole (Metronidazole) 250 mg PO Q6H [facility] Last Admin: 09/10/17 15:58 Dose: Not Given Metronidazole (Metronidazole) 250 mg PO Q6H [facility] Last Admin: 09/11/17 11:37 Dose: 250 mg Midazolam HCl (Versed 1 Mg/Ml) Confirm Administered Dose 2 mg .ROUTE .STK-MED ONE Stop: 09/06/17 21:54 Multivitamins/Minerals/Vitamin C (Tab-A-Gris) 1 tab PO DAILY [facility] Last Admin: 09/11/17 08:31 Dose: 1 tab Neostigmine Methylsulfate (Neostigmine) Confirm Administered Dose 5 mg .ROUTE .STK-MED ONE Stop: 09/06/17 23:56 Omeprazole (Omeprazole) 20 mg PO DAILY [facility] Last Admin: 09/11/17 08:30 Dose: 20 mg Ondansetron HCl (Zofran) 4 mg IVPUSH ONETIME ONE Stop: 09/06/17 18:53 Last Admin: 09/06/17 19:16 Dose: 4 mg Ondansetron HCl (Zofran) Confirm Administered Dose 4 mg .ROUTE .STK-MED ONE Stop: 09/06/17 21:54 Ondansetron HCl (Zofran) 4 mg IVPUSH Q6H PRN PRN Reason: Nausea/Vomiting Last Admin: 09/09/17 22:19 Dose: 4 mg Oxycodone/Acetaminophen (Percocet 325-5 Mg) 2 tab PO Q4H PRN PRN Reason: Pain Last Admin: 09/11/17 04:56 Dose: 1 tab Pantoprazole Sodium (Protonix Iv) 40 mg IVPUSH DAILY@0730 [facility] Last Admin: 09/09/17 08:28 Dose: 40 mg Phenol/Menthol (Chloraseptic Throat [place]) 1 ml MUCMEM Q2H PRN PRN Reason: Sore Throat Last Admin: 09/10/17 06:34 Dose: 1 ml Phenylephrine HCl (Phenylephrine In Ns 100 Mcg/Ml) Confirm Administered Dose 1 mg .ROUTE .STK-MED ONE Stop: 09/06/17 22:23 Phenylephrine HCl (Vladimir-Synephrine) Confirm Administered Dose 10 mg .ROUTE .STK- MED ONE Stop: 09/06/17 22:23 Polyethylene Glycol (Miralax) 17 gm PO DAILY [facility] Last Admin: 09/11/17 08:33 Dose: Not Given Rocuronium [place] (Zemuron) Confirm Administered Dose 100 mg .ROUTE .STK-MED ONE Stop: 09/06/17 21:54 Senna/Docusate Sodium (Senna Plus) 1 tab PO BEDTIME [facility] Last Admin: 09/10/17 20:11 Dose: 1 tab Sodium Phosphate (Neutra-Phos) 250 mg PO QID [facility] Last Admin: 09/11/17 11:37 Dose: 250 mg Succinylcholine Chloride (Succinylcholine In Ns Pf) Confirm Administered Dose 200 mg .ROUTE .STK-MED ONE Stop: 09/06/17 21:54 - Exam Wound/Incisions: Healing Well, Dressing Dry and Intact General: Alert, Oriented Lungs: Clear to Auscultation, Normal Respiratory Effort Cardiovascular: Regular Rate, Regular Rhythm GI/Abdominal Exam: Soft, Non-Tender, No Distention, No Mass - Problem List & Annotations (1) SBO (small bowel obstruction) SNOMED Code(s): 950873554 Code(s): K56.609 - UNSP INTESTNL OBST, UNSP TO PARTIAL VERSUS COMPLETE OBST Status: Acute (2) Appendicitis SNOMED Code(s): 06482454 Code(s): K37 - UNSPECIFIED APPENDICITIS Status: Acute - Problem List Review Problem List Initiated/Reviewed/Updated: Yes - Plan Plan (Free Text/Narrative):: Patient doing well. WBC rising. No signs of infection clinically or on physical exam. Will continue IV antibiotics. Will attempt to advanced diet to clears today.
== END 2017-09-11 16:25 | disposition home or self-care (01) | DRG 223 ==
LOC: MW.ED 18:04 → MW.SDS 21:18 → MW.MS 21:32 → MW.ICU 09-07 00:28 → OBSVTOIN 09-07 00:28 → MW.MS 09-09 08:09
PROVIDERS: ADMIT Surgery; ATTEND Surgery
PROC: 0DTJ0ZZ Resection of Appendix, Open Approach (ICD-10-PCS; principal; 2017-09-07)
PROC: 0DJD4ZZ Inspection of Lower Intestinal Tract, Percutaneous Endoscopic Approach (ICD-10-PCS; 2017-09-07)
DX: K35.3 Acute appendicitis with localized peritonitis (principal); K56.609 Unspecified intestinal obstruction, unspecified as to partial versus complete obstruction; I42.9 Cardiomyopathy, unspecified; E78.00 Pure hypercholesterolemia, unspecified; I10 Essential (primary) hypertension; Z87.891 Personal history of nicotine dependence; Z79.899 Other long term (current) drug therapy; Z88.8 Allergy status to other drugs, medicaments and biological substances
CPT/HCPCS: 00840; 36415; 74018; 74018-26; 74177; 74177-26; 80048; 80053; 81001; 82150; 82565; 83605; 83690; 83735; 84100; 84520; 85025; 87040; 87086; 88304; 93005; 96361; 96365; 96375; 99284; 99285-25; A9270-GY; C9113; J0690; J1170; J1644; J1956; J2250; J2370; J2405; J3010; J3475; J3480; J7040; J7050; J7120; Q9967

== ENCOUNTER 2017-11-16 13:27 | Emergency (ER) | payer MEDICARE, OTHER, BC ==
[2017-11-16] MEDS ORDERED: Ibuprofen 600 MG Tab PO ONE (13:46)
--- NOTE | 2017-11-16 13:47 | EDM.PDOC ---
ED HPI GENERAL MEDICAL PROBLEM - General Chief Complaint: Lower Extremity Injury/Pain Stated Complaint: LEFT ANKLE PAIN Time Seen by Provider: 11/16/17 13:30 Source of Information: Reports: Patient History Limitations: Reports: No Limitations - History of Present Illness INITIAL COMMENTS - FREE TEXT/NARRATIVE: History of present illness: []Patient was appropriate yesterday and she was getting out of a truck and rolled her ankle when her feet struck the ground. She denies any numbness or tingling. Review of systems: As per history of present illness and below otherwise all systems reviewed and negative. Past medical history: As per history of present illness and as reviewed below otherwise noncontributory. Surgical history: As per history of present illness and as reviewed below otherwise noncontributory. Social history: No reported history of drug or alcohol abuse. Family history: As per history of present illness and as reviewed below otherwise noncontributory. Physical exam: General: Well developed, well nourished in NAD HEENT: Atraumatic, normocephalic, pupils reactive, negative for conjunctival pallor or scleral icterus, mucous membranes moist, throat clear, neck supple, nontender, trachea midline. Lungs: Clear to auscultation, breath sounds equal bilaterally, chest nontender. Heart: S1S2, regular, negative for clicks, rubs, or JVD. Abdomen: Soft, nondistended, nontender. Negative for masses or hepatosplenomegaly. Negative for costovertebral tenderness. Pelvis: Stable nontender. Genitourinary: Deferred. Rectal: Deferred. Extremities: Swelling of the lower left leg pulses are intact moves toes and sensation is intact , negative for cords or calf pain. Neurovascular unremarkable. Neuro: Awake, alert, oriented. Cranial nerves II through XII unremarkable. Cerebellum unremarkable. Motor and sensory unremarkable throughout. Exam nonfocal. Diagnostics: []x-ray left ankle shows fractured fibula nondisplaced Therapeutics: []Posterior splint placed Impression: []Fractured fibula Plan: [] Definitive disposition and diagnosis as appropriate pending reevaluation and review of above. left ankle Pain Score (Numeric/FACES): 6 - Related Data Allergies Allergy/AdvReac Type Severity Reaction Status Date / Time amoxicillin Allergy Rash Verified 11/16/17 13:46 Home Meds: Home Meds Aspirin 325 mg PO DAILY 09/06/17 [History] Atenolol [Tenormin] 50 mg PO DAILY 09/06/17 [History] Levothyroxine 75 mcg PO DAILY 09/06/17 [History] atorvaSTATin [Lipitor] 80 mg PO DAILY 09/06/17 [History] Ciprofloxacin [IJD: Ciprofloxacin HCl] 500 mg PO BID #7 tablet 09/11/17 [Rx] metroNIDAZOLE 250 mg PO Q6H #15 tablet 09/11/17 [Rx] Past Medical History HEENT History: Reports: None Cardiovascular History: Reports: Cardiomyopathy, High Cholesterol, Hypertension Respiratory History: Reports: None Gastrointestinal History: Reports: Diverticulosis, Other (See Below) Other Gastrointestinal History: diverticulits or chron's-unsure of dx Genitourinary History: Reports: UTI, Recurrent [employer] [employer] [employer] History: Reports: Musculoskeletal History: Reports: Arthritis, Osteoporosis Neurological History: Reports: None Psychiatric History: Reports: None Endocrine/Metabolic History: Reports: Hypothyroidism Hematologic History: Reports: None Immunologic History: Reports: None Oncologic (Cancer) History: Reports: None, Breast Dermatologic History: Reports: None - Infectious Disease History Infectious Disease History: Reports: Chicken Pox, Measles, Mumps - Past Surgical History HEENT Surgical History: Reports: Tonsillectomy Cardiovascular Surgical History: Reports: None Female Surgical History: Reports: Cystectomy, Mastectomy, Tubal Ligation Oncologic Surgical History: Reports: Mastectomy Social & Family History - Family History Family Medical History: Noncontributory Oncologic: Reports: Colon - Caffeine Use Caffeine Use: Reports: Coffee, Soda Other Caffeine Use: caffeine free Review of Systems - Review of Systems Review Of Systems: See Below (See history of present illness) ED EXAM, GENERAL - Physical Exam Exam: See Below (See history of present illness) Course - Vital Signs Last Recorded V/S: Last Vital Signs Temp 97.8 F 11/16/17 13:47 Pulse 76 11/16/17 13:47 Resp 18 11/16/17 13:47 BP 181/109 H 11/16/17 13:47 Pulse Ox 97 11/16/17 13:47 - Orders/Labs/Meds Orders: Active Orders 24 hr Category Date Time Status Splinting [RC] ASDIRECTED Care 11/16/17 14:17 Active Ankle Min 3V Lt [CR] Stat Exams 11/16/17 13:45 Taken Meds: Medications Discontinued Medications Generic Name Dose Route Start Last Admin Trade Name Tiffanie PRN Reason Stop Dose Admin Ibuprofen 600 mg 11/16/17 13:46 11/16/17 13:55 Motrin PO 11/16/17 13:47 600 mg ONETIME ONE Administration Departure - Departure Time of Disposition: 14:40 Disposition: Home, Self-Care 01 Condition: Good Clinical Impression: Nondisplaced fracture of distal end of left fibula - Discharge Information Referrals: PCP,None [Primary Care Provider] - Forms: ED Department Discharge Additional Instructions: The following information is given to patients seen in the emergency department who are being discharged to home. This information is to outline your options for follow-up care. We provide all patients seen in our emergency department with a follow-up referral. The need for follow-up, as well as the timing and circumstances, are variable depending upon the specifics of your emergency department visit. If you don't have a primary care physician on staff, we will provide you with a referral. We always advise you to contact your personal physician following an emergency department visit to inform them of the circumstance of the visit and for follow-up with them and/or the need for any referrals to a consulting specialist. The emergency department will also refer you to a specialist when appropriate. This referral assures that you have the opportunity for follow-up care with a specialist. All of these measure are taken in an effort to provide you with optimal care, which includes your follow-up. Under all circumstances we always encourage you to contact your private physician who remains a resource for coordinating your care. When calling for follow-up care, please make the office aware that this follow-up is from your recent emergency room visit. If for any reason you are refused follow-up, please contact the [facility] Emergency Department at and asked to speak to the emergency department charge nurse. Motrin and Tylenol for pain ice to injury elevate leg as much as possible above the level of your heart. [facility] Specialty Care - [facility] Professional Building [address] [place] [address], [address] [place] [address] - My Orders Last 24 Hours: My Active Orders 11/16/17 13:45 Ankle Min 3V Lt [CR] Stat 11/16/17 14:17 Splinting [RC] ASDIRECTED - Assessment/Plan Last 24 Hours: My Active Orders 11/16/17 13:45 Ankle Min 3V Lt [CR] Stat 11/16/17 14:17 Splinting [RC] ASDIRECTED
--- NOTE | 2017-11-17 20:12 | CR ---
EXAM DATE: 11/16/17 PATIENT'S AGE: 67 Patient: ALIRIO RODRÍGUEZ Facility: [place], [place] Site . Site : 1950 Study: XRay Extremity Left ankle [id number] 1:59:55 PM Ordering Physician: Gilles Greenwood Final Report: indication: Patient fell; pain left ankle. COMPARISON: None. TECHNIQUE: Three-view study left ankle. FINDINGS: Undisplaced fracture distal fibula. Tibiotalar articulation is unremarkable . Diffuse soft tissue swelling surrounding the left ankle and distal leg. Impression: 1. Undisplaced fracture distal fibula. 2. Normal tibiotalar articulation. 3. Diffuse soft tissue swelling lateral aspect left ankle and distal leg. Dictated by Kayode Ac MD @ Nov 16 2017 2:05PM (Electronic Signature) Report Signed by Proxy. MARIBETH
== END 2017-11-16 16:08 | disposition home or self-care (01) ==
LOC: MW.ED 13:27
DX: S82.832A Other fracture of upper and lower end of left fibula, initial encounter for closed fracture (principal); E78.00 Pure hypercholesterolemia, unspecified; I10 Essential (primary) hypertension; E03.9 Hypothyroidism, unspecified; Z88.1 Allergy status to other antibiotic agents; Z79.82 Long term (current) use of aspirin; Z79.899 Other long term (current) drug therapy; W22.8XXA Striking against or struck by other objects, initial encounter
CPT/HCPCS: 29515; 73610; 99283; A9270

== ENCOUNTER 2017-12-28 16:55 | Emergency (ER) | payer BC, OTHER ==
--- NOTE | 2017-12-28 17:21 | EDM.PDOC ---
ED HPI GENERAL MEDICAL PROBLEM - General Chief Complaint: Abdominal Pain Stated Complaint: STOMACH PAIN/VOMITING/CONSTIPATION Time Seen by Provider: 12/28/17 17:17 Source of Information: Reports: Patient History Limitations: Reports: No Limitations - History of Present Illness INITIAL COMMENTS - FREE TEXT/NARRATIVE: HISTORY AND PHYSICAL: []67-year-old female presents with abdominal pain and constipation History of Present Illness: []She had fractured her ankle 6 weeks ago is not casting any walking boot she is taking some pain medication and she has increased her pain medication due to her abdominal pain. Presents today with constipation Review of Systems: As per history of present illness and below otherwise all systems reviewed and negative. Past medical history: As per history of present illness and as reviewed below otherwise noncontributory. Surgical history: As per history of present illness and as reviewed below otherwise noncontributory. Social history: No reported history of drug or alcohol abuse. Family history: As per history of present illness and as reviewed below otherwise noncontributory. Physical exam: Very pleasant alert and oriented female answering questions appropriately. She is speaking in full sentences without any shortness of breath. She is nontoxic in appearance. HEENT: Atraumatic, normocehpalic, pupils reactive, negative for conjunctival pallor or scleral icterus, mucous membranes moist, throat clear, neck supple, nontender, trachea midline. Lungs: Clear to auscultation, breath sounds equal bilaterally, chest non tender. Heart: S1S2, regular, negative for clicks, rubs, or JVD. Abdomen: Soft, nondistended, mildly tender. Negative for masses or hepatossplenmegaly. Negative for costovertebral tenderness. Pelvis: Stable nontender. Genitourinary: Deferred. Rectal: Deferred Extremities: Atraumatic, negative for cords or calf pain. Left knee and thigh is edematous foot remains in a Cam Walker boot Neurovascular unremarkable. Neuro: Awake, alert, oriented. Cranial nerves II through XII unremarkable. Cerebellum unremarkable. Motor and sensory unremarkable throughout. Exam nonfocal. Discussed results with the patient and her daughter Diagnostics: []Abdomen flat and upright xray Therapeutics: [] Impression: []Abdominal gas pain Plan: []Discharge Dulcolax suppositories Stool softener Follow-up with your primary care provider Definitive disposition and diagnosis as appropriate pending reevaluation and review of above. Onset: Gradual Duration: Day(s):, Getting Worse Location: Reports: Abdomen Quality: Reports: Pressure, Same as Previous Episode Severity: Moderate Improves with: Reports: None Worsens with: Reports: None abdominal Pain Score (Numeric/FACES): 5 - Related Data Allergies Allergy/AdvReac Type Severity Reaction Status Date / Time amoxicillin Allergy Rash Verified 12/28/17 17:02 Home Meds: Home Meds Aspirin 325 mg PO DAILY 09/06/17 [History] Atenolol [Tenormin] 50 mg PO DAILY 09/06/17 [History] Levothyroxine 75 mcg PO DAILY 09/06/17 [History] atorvaSTATin [Lipitor] 80 mg PO DAILY 09/06/17 [History] metroNIDAZOLE 250 mg PO Q6H #15 tablet 09/11/17 [Rx] Past Medical History HEENT History: Reports: None Cardiovascular History: Reports: Cardiomyopathy, High Cholesterol, Hypertension Other Cardiovascular History: Enlarged heart Respiratory History: Reports: None Gastrointestinal History: Reports: Diverticulosis, Other (See Below) Other Gastrointestinal History: diverticulits or chron's-unsure of dx Genitourinary History: Reports: UTI, Recurrent 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: Musculoskeletal History: Reports: Arthritis, Osteoporosis Neurological History: Reports: None Psychiatric History: Reports: None Endocrine/Metabolic History: Reports: Hypothyroidism Hematologic History: Reports: None Immunologic History: Reports: None Oncologic (Cancer) History: Reports: Breast Dermatologic History: Reports: None - Infectious Disease History Infectious Disease History: Reports: Chicken Pox, Measles, Mumps - Past Surgical History Head Surgeries/Procedures: Reports: None HEENT Surgical History: Reports: Tonsillectomy Cardiovascular Surgical History: Reports: None Respiratory Surgical History: Reports: None GI Surgical History: Reports: None Female Surgical History: Reports: Cystectomy, Mastectomy, Tubal Ligation Endocrine Surgical History: Reports: None Neurological Surgical History: Reports: None Musculoskeletal Surgical History: Reports: None Oncologic Surgical History: Reports: Mastectomy Dermatological Surgical History: Reports: None Social & Family History - Family History Family Medical History: Noncontributory Oncologic: Reports: Colon - Tobacco Use Smoking Status *Q: Never Smoker Second Hand Smoke Exposure: No - Caffeine Use Caffeine Use: Reports: None Other Caffeine Use: caffeine free - Recreational Drug Use Recreational Drug Use: No ED ROS GENERAL - Review of Systems Review Of Systems: ROS reveals no pertinent complaints other than HPI. ED EXAM, GI/ABD - Physical Exam Exam: See Below (see dictation) Course - Vital Signs Last Recorded V/S: Last Vital Signs Temp 36.6 C 12/28/17 17:03 Pulse 86 12/28/17 17:03 Resp 18 12/28/17 17:03 BP 174/109 H 12/28/17 17:03 Pulse Ox 98 12/28/17 17:03 - Orders/Labs/Meds Orders: Active Orders 24 hr Category Date Time Status Abdomen 2V AP Flat Upright [CR] Stat Exams 12/28/17 17:25 Taken Meds: Medications Discontinued Medications Generic Name Dose Route Start Last Admin Trade Name Freq PRN Reason Stop Dose Admin Ibuprofen 800 mg 12/28/17 17:37 12/28/17 17:45 Motrin PO 12/28/17 17:38 800 mg ONETIME ONE Administration Ibuprofen Confirm 12/28/17 17:43 Motrin Administered 12/28/17 17:44 Dose 800 mg .ROUTE .STK-MED ONE Departure - Departure Time of Disposition: 18:59 Disposition: Home, Self-Care 01 Condition: Good Clinical Impression: Abdominal pain Qualifiers: Abdominal location: left upper quadrant Qualified Code(s): R10.12 - Left upper quadrant pain - Discharge Information Instructions: Abdominal Pain, Adult, [id number] Referrals: PCP,None [Primary Care Provider] - Forms: ED Department Discharge Additional Instructions: The following information is given to patients seen in the emergency department who are being discharged to home. This information is to outline your options for follow-up care. We provide all patients seen in our emergency department with a follow-up referral. The need for follow-up, as well as the timing and circumstances, are variable depending upon the specifics of your emergency department visit. If you don't have a primary care physician on staff, we will provide you with a referral. We always advise you to contact your personal physician following an emergency department visit to inform them of the circumstance of the visit and for follow-up with them and/or the need for any referrals to a consulting specialist. The emergency department will also refer you to a specialist when appropriate. This referral assures that you have the opportunity for followup care with a specialist. All of these measure are taken in an effort to provide you with optimal care, which includes your followup. Under all circumstances we always encourage you to contact your private physician who remains a resource for coordinating your care. When calling for followup care, please make the office aware that this follow-up is from your recent emergency room visit. If for any reason you are refused follow-up, please contact the [facility] emergency department at and asked to speak to the emergency department charge nurse. You have gas pains in your abdomen Dulcolax suppositories to help the gas and stool moves through your:colon - My Orders Last 24 Hours: My Active Orders 12/28/17 17:25 Abdomen 2V AP Flat Upright [CR] Stat - Assessment/Plan Last 24 Hours: My Active Orders 12/28/17 17:25 Abdomen 2V AP Flat Upright [CR] Stat
[2017-12-28] MEDS ORDERED: Ibuprofen 800 MG Tab PO ONE (17:37)
[2017-12-28] MEDS ORDERED: Ibuprofen 800 MG Tab ONE (17:43)
--- NOTE | 2017-12-29 16:25 | CR ---
EXAM DATE: 12/28/17 PATIENT'S AGE: 67 Patient: ALIRIO RODRÍGUEZ Facility: [place], [place] Site . Site : 1950 Study: XRay Abdomen [id number] 6:01:27 PM Ordering Physician: Doctor Liriano Final Report: INDICATION: abd pain/constipation TECHNIQUE: Abdomen 2 view COMPARISON: None FINDINGS: Bowel: Nonobstructive bowel gas pattern. Soft tissues: No sign of soft tissue mass. No suspicious calcifications. Bones: Degenerative changes. Other: Surgical clips within the right breast/imaged right axilla IMPRESSION: Nonobstructive bowel gas pattern. Dictated by Ricki Nixon MD @ 12/28/2017 6:06:13 PM Dictated by: Ricki Nixon MD @ 12/28/2017 18:08:25 (Electronic Signature) Report Signed by Proxy. MARIBETH
== END 2017-12-28 19:06 | disposition home or self-care (01) ==
LOC: MW.ED 16:55
DX: R10.12 Left upper quadrant pain (principal); E78.00 Pure hypercholesterolemia, unspecified; I10 Essential (primary) hypertension; E03.9 Hypothyroidism, unspecified; Z88.1 Allergy status to other antibiotic agents; Z79.899 Other long term (current) drug therapy; Z79.82 Long term (current) use of aspirin
CPT/HCPCS: 74019; 99284; A9270; 99283

== ENCOUNTER 2018-01-23 10:58 | Observation (INO) | payer BC, OTHER ==
[2018-01-23] MEDS ORDERED: Morphine 2 MG/ML Syringe IVPUSH PRN (11:30)
[2018-01-23] MEDS ORDERED: Acetaminophen 325 MG Tab PO PRN (11:30)
[2018-01-23] MEDS ORDERED: Sodium Chloride 0.9% 2.5 ML Syringe FLUSH PRN (11:30)
[2018-01-23] MEDS ORDERED: Albuterol/Ipratropium 3.0-0.5 MG/3 ML Neb Soln NEB PRN (11:30)
[2018-01-23] MEDS ORDERED: Sodium Chloride 0.9% 10 ML Syringe FLUSH PRN (11:30)
[2018-01-23] MEDS ORDERED: Heparin Sodium 5,000 Units/ML Vial IVPUSH ONE (12:19)
[2018-01-23 12:30] LABS: CHLORIDE,CL 105 mmol/L (98-107); SODIUM,NA 141 mmol/L (136-145)
[2018-01-23] MEDS: Heparin Sod,Pork In 0.45% Nacl 25,000 UNIT/500 ML IV.SOLN IV SCH (12:36)
--- NOTE | 2018-01-23 12:38 | PCM.HP ---
H&P History of Present Illness - General Date of Service: 01/23/18 Admit Problem/Dx: Admission Diagnosis/Problem Admission Diagnosis/Problem DVT, Deep venous thrombosis Source of Information: Patient History Limitations: Reports: No Limitations - History of Present Illness Initial Comments - Free Text/Narative: This 67 year old female with pmh of HTN, HLD, breast ca with L mastectomy presented initially to the Orthopedic clinic for a recheck of her L ankle. She suffered a L ankle fracture in November 2017, non-surgical. She had a lower leg cast in place until end of December. When the cast was removed some upper leg swelling was noted, she was told to monitor this. The swelling worsened and she reports some pain to her left knee. She returned today for evaluation. Venous doppler obtained of L leg revealing large DVT extending from iliac to at least the distal popliteal vein. Orthopedic provider asked for direct admission. Isabella denies chest pain or SOB. No other concerns besides leg swelling and tenderness. No abdominal pain, no cough, no palpitations. Labwork WNL. Telemetry reveals LBBB, which was seen on most recent EKG in September when she had appendectomy. She will be admitted observation telemetry. PCP, Dr Gayle Turcios at [facility] - Related Data Allergies/Adverse Reactions: Allergies Allergy/AdvReac Type Severity Reaction Status Date / Time amoxicillin Allergy Rash Verified 12/28/17 17:02 Home Medications: Home Meds Aspirin 325 mg PO DAILY 09/06/17 [History] Atenolol [Tenormin] 50 mg PO DAILY 09/06/17 [History] Levothyroxine 75 mcg PO DAILY 09/06/17 [History] atorvaSTATin [Lipitor] 80 mg PO DAILY 09/06/17 [History] metroNIDAZOLE 250 mg PO Q6H #15 tablet 09/11/17 [Rx] Past Medical History HEENT History: Reports: None Cardiovascular History: Reports: Cardiomyopathy, High Cholesterol, Hypertension Other Cardiovascular History: Enlarged heart Respiratory History: Reports: None. 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 Denies: CVA, TIA Psychiatric History: Reports: None. Denies: Anxiety Endocrine/Metabolic History: Reports: Hypothyroidism. Denies: Diabetes, Type II Hematologic History: Reports: None Immunologic History: Reports: None Oncologic (Cancer) History: Reports: Breast Dermatologic History: Reports: None - Infectious Disease History Infectious Disease History: Reports: Chicken Pox, Measles, Mumps - Past Surgical History Head Surgeries/Procedures: Reports: None HEENT Surgical History: Reports: Tonsillectomy Cardiovascular Surgical History: Reports: None Respiratory Surgical History: Reports: None GI Surgical History: Reports: Appendectomy Female Surgical History: Reports: Cystectomy, Mastectomy (R), Tubal Ligation Endocrine Surgical History: Reports: None Neurological Surgical History: Reports: None Musculoskeletal Surgical History: Reports: None Oncologic Surgical History: Reports: Mastectomy Dermatological Surgical History: Reports: None Social & Family History - Family History Family Medical History: Noncontributory Oncologic: Reports: Colon - Tobacco Use Smoking Status *Q: Former Smoker (quit over 40 years ago) Used Tobacco, but Quit: No - Caffeine Use Caffeine Use: Reports: None Other Caffeine Use: caffeine free - Alcohol Use Alcohol Use History: No - Recreational Drug Use Recreational Drug Use: No H&P Review of Systems - Review of Systems: Review Of Systems: See Below General: Reports: No Symptoms. Denies: Fever, Chills, Malaise, Weakness HEENT: Reports: No Symptoms. Denies: Headaches, Sinus Congestion, Vertigo Pulmonary: Reports: No Symptoms. Denies: Shortness of Breath, Cough, Sputum Cardiovascular: Reports: No Symptoms. Denies: Chest Pain, Dyspnea on Exertion, Edema Gastrointestinal: Reports: No Symptoms. Denies: Abdominal Pain, Black Stool, Bloody Stool, Nausea, Vomiting Genitourinary: Reports: No Symptoms. Denies: Dysuria, Frequency, Burning Musculoskeletal: Reports: Leg Pain (L leg with swelling.) Skin: Reports: Erythema (L leg) Neurological: Reports: No Symptoms Hematologic/Lymphatic: Reports: No Symptoms Immunologic: Reports: No Symptoms Exam - Exam Exam: See Below - Vital Signs Vital Signs: Last Vital Signs Temp 97.2 F 01/23/18 11:03 Pulse 78 01/23/18 11:03 Resp 19 01/23/18 11:03 BP 153/80 H 01/23/18 11:03 Pulse Ox 98 01/23/18 11:03 Weight: 66.043 kg - Exam General: Alert, Oriented, Cooperative HEENT: Conjunctiva Clear, Mucosa Moist & [place], Pupils Equal, Pupils Reactive Neck: Supple, Trachea Midline Lungs: Clear to Auscultation, Normal Respiratory Effort Cardiovascular: Regular Rate, Regular Rhythm, Normal S1, Normal S2. No: Systolic Murmur GI/Abdominal Exam: Normal Bowel Sounds, Soft, Non-Tender Back Exam: Normal Inspection, Full Range of Motion Extremities: Normal Range of Motion, Pedal Edema (+1 pitting edema to L leg from foot to hip), Other (tenderness behind L knee and medial thigh) Skin: Other (L leg erythema) Neurological: Cranial Nerves Intact Neuro Extensive - Mental Status: Alert, Oriented x3 Neuro Extensive - Motor, Sensory, Reflexes: CN II-XII Intact Psychiatric: Alert, Normal Affect, Normal Mood - Patient Data Lab Results Last 24 hrs: Laboratory Results - last 24 hr 01/23/18 01/23/18 01/23/18 Range/Units 12:02 12:02 12:02 WBC 4.51 (4.0-11.0) K/uL RBC 4.47 (4.30-5.90) M/uL Hgb 13.5 (12.0-16.0) g/dL Hct 41.4 (36.0-46.0) % MCV 92.6 (80.0-98.0) fL MCH 30.2 (27.0-32.0) pg MCHC 32.6 (31.0-37.0) g/dL RDW Std Deviation 48.1 (28.0-62.0) fl RDW Coeff of Terry 14 (11.0-15.0) % Plt Count 241 (150-400) K/uL MPV 9.30 (7.40-12.00) fL Nucleated RBC % 0.0 /100WBC Nucleated RBCs # 0 K/uL INR 0.98 APTT 25.3 (18.6-31.3) SEC Sodium 141 (136-145) mmol/L Potassium 4.7 (3.5-5.1) mmol/L Chloride 105 (98-107) mmol/L Carbon Dioxide 31.2 (21.0-32.0) mmol/L BUN 12 (7.0-18.0) mg/dL Creatinine 0.7 (0.6-1.0) mg/dL Est Cr Clr Drug Dosing 54.48 mL/min Estimated GFR (MDRD) > 60.0 ml/min Glucose 105 (74-106) mg/dL Calcium 9.0 (8.5-10.1) mg/dL Total Bilirubin 0.5 (0.2-1.0) mg/dL AST 21 (15-37) IU/L ALT 22 (14-63) IU/L Alkaline Phosphatase 76 (46-116) U/L Total Protein 7.1 (6.4-8.2) g/dL Albumin 3.6 (3.4-5.0) g/dL Globulin 3.5 (2.0-3.5) g/dL Albumin/Globulin Ratio 1.0 L (1.3-2.8) Result Diagrams: 01/23/18 12:02 01/23/18 12:02 - Problem List (1) DVT, lower extremity, proximal, acute SNOMED Code(s): 296530603842 ICD Code: I82.4Y9 - ACUTE EMBLSM AND THOMBOS UNSP DEEP VN UNSP PROX LOW EXTRM Status: Acute Current Visit: Yes Qualifiers: Laterality: left Qualified Code(s): I82.4Y2 - Acute embolism and thrombosis of unspecified deep veins of left proximal lower extremity (2) HTN (hypertension) SNOMED Code(s): 02230103 ICD Code: I10 - ESSENTIAL (PRIMARY) HYPERTENSION Status: Chronic Current Visit: Yes Qualifiers: Hypertension type: essential hypertension Qualified Code(s): I10 - Essential (primary) hypertension (3) HLD (hyperlipidemia) SNOMED Code(s): 61169150 ICD Code: E78.5 - HYPERLIPIDEMIA, UNSPECIFIED Status: Chronic Current Visit: Yes (4) HX: breast cancer SNOMED Code(s): 579880524 ICD Code: Z85.3 - PERSONAL HISTORY OF MALIGNANT NEOPLASM OF BREAST Status: Chronic Current Visit: Yes (5) H/O right mastectomy SNOMED Code(s): 586843763, 751251799 ICD Code: Z90.11 - ACQUIRED ABSENCE OF RIGHT BREAST AND NIPPLE Status: Chronic Current Visit: Yes (6) History of fracture of left ankle SNOMED Code(s): 422603294 ICD Code: Z87.81 - PERSONAL HISTORY OF (HEALED) TRAUMATIC FRACTURE Status: Chronic Current Visit: Yes (7) Hypothyroidism SNOMED Code(s): 68029138 ICD Code: E03.9 - HYPOTHYROIDISM, UNSPECIFIED Status: Chronic Current Visit: Yes Problem List Initiated/Reviewed/Updated: Yes Orders Last 24hrs: Active Orders 24 hr Category Date Time Status Patient Status [ADT] Routine ADT 01/23/18 11:30 Active Cardiac Monitoring [RC] Q8H Care 01/23/18 11:31 Active Oxygen Therapy [RC] PRN Care 01/23/18 11:30 Active Pulse Oximetry [RC] PRN Care 01/23/18 11:31 Active RT Aerosol Therapy [RC] ASDIRECTED Care 01/23/18 11:35 Active Telemetry Monitoring [Cardiac Monitoring] [RC] . Care 01/23/18 10:46 Active DIRECTED Up ad Jeimy [RC] ASDIRECTED Care 01/23/18 11:30 Active VTE/DVT Education [RC] PER UNIT ROUTINE Care 01/23/18 11:30 Active Vital Signs [RC] Q4H Care 01/23/18 11:30 Active Heart Healthy Diet [DIET] Diet 01/23/18 Lunch Active Heart Healthy Diet [DIET] Diet 01/23/18 Lunch Active CBC WITH AUTO DIFF [HEME] AM Lab 01/24/18 05:11 Ordered CBC WITH AUTO DIFF [HEME] AM Lab 01/25/18 05:11 Ordered CBC WITH AUTO DIFF [HEME] AM Lab 01/26/18 05:11 Ordered CBC WITH AUTO DIFF [HEME] AM Lab 01/27/18 05:11 Ordered CBC WITH AUTO DIFF [HEME] AM Lab 01/28/18 05:11 Ordered COMPREHENSIVE METABOLIC PN,CMP [CHEM] AM Lab 01/24/18 05:11 Ordered COMPREHENSIVE METABOLIC PN,CMP [CHEM] AM Lab 01/25/18 05:11 Ordered COMPREHENSIVE METABOLIC PN,CMP [CHEM] AM Lab 01/26/18 05:11 Ordered COMPREHENSIVE METABOLIC PN,CMP [CHEM] AM Lab 01/27/18 05:11 Ordered Acetaminophen [Tylenol] Med 01/23/18 11:30 Active 650 mg PO Q4H PRN Albuterol/Ipratropium [DuoNeb 3.0-0.5 MG/3 ML] Med 01/23/18 11:30 Active 3 ml NEB Q4HRRT PRN Atenolol [Tenormin] Med 01/24/18 09:00 Active 50 mg PO DAILY Heparin Sod,Pork In 0.45% Nacl [Heparin-1/2Ns 25,000 Med 01/23/18 12:15 Active Units/500] 25,000 unit in 500 ml IV TITRATE Levothyroxine Med 01/24/18 09:00 Active 75 mcg PO DAILY Morphine Med 01/23/18 11:30 Active 2 mg IVPUSH Q2H PRN Sodium Chloride 0.9% [Saline Flush] Med 01/23/18 11:30 Active 10 ml FLUSH ASDIRECTED PRN Sodium Chloride 0.9% [Saline Flush] Med 01/23/18 11:30 Active 2.5 ml FLUSH ASDIRECTED PRN atorvaSTATin [Lipitor] Med 01/24/18 09:00 Active 80 mg PO DAILY Peripheral IV Insertion Adult [OM.PC] Routine Oth 01/23/18 11:30 Ordered Saline Lock Insert [OM.PC] Routine Oth 01/23/18 11:30 Ordered Resuscitation Status Routine Resus Stat 01/23/18 11:30 Ordered Medication Orders Acetaminophen (Tylenol) 650 mg PO Q4H PRN PRN Reason: Pain (Mild 1-3)/fever Albuterol/Ipratropium (Duoneb 3.0-0.5 Mg/3 Ml) 3 ml NEB Q4HRRT PRN PRN Reason: Shortness Of Breath/wheezing Atenolol (Tenormin) 50 mg PO DAILY SONY Atorvastatin Calcium (Lipitor) 80 mg PO DAILY SONY Heparin Sodium/Sodium Chloride (Heparin-1/2ns 25,000 Units/500) 25,000 unit in 500 mls @ 23.775 mls/hr IV TITRATE SONY; Protocol Levothyroxine Sodium (Levothyroxine) 75 mcg PO DAILY SONY Morphine Sulfate (Morphine) 2 mg IVPUSH Q2H PRN PRN Reason: Pain (severe 7-10) Stop: 01/24/18 11:34 Sodium Chloride (Saline Flush) 10 ml FLUSH ASDIRECTED PRN PRN Reason: Keep Vein Open Sodium Chloride (Saline Flush) 2.5 ml FLUSH ASDIRECTED PRN PRN Reason: Keep Vein Open Assessment/Plan Comment:: This 67 year old female admitted with acute L proximal DVT to leg 1. L leg DVT: Start on Heparin gtt today. Monitor closely for chest pain or SOB. Patient educated on letting nursing know if she experiences these symptoms. Monitor on Telemetry. Will need to be on anticoagulation for at least 3 months. She will need follow up regarding hypercoagulable disease as outpatient. Elevate leg and pain control PRN. 2. HTN: Stable. Continue Atenolol. 3. HDL: Stable continue statin. 4. Hypothyroidism: Stable continue Levothyroxine. Dispo: 1-2 days.
[2018-01-23] MEDS ORDERED: Acetaminophen/HYDROcodone 325-5 MG Tab PO PRN (13:59)
[2018-01-23] MEDS: Atenolol 50 MG Tab PO SCH (17:29)
[2018-01-23] MEDS: atorvaSTATin 40 MG Tab PO SCH (21:30)
[2018-01-24 07:12] LABS: CHLORIDE,CL 106 mmol/L (98-107); SODIUM,NA 141 mmol/L (136-145)
[2018-01-24] MEDS: Levothyroxine 75 MCG Tab PO SCH (08:28)
[2018-01-24] MEDS ORDERED: atorvaSTATin 40 MG Tab PO SCH (09:00)
[2018-01-24] MEDS ORDERED: Atenolol 50 MG Tab PO SCH (09:00)
[2018-01-24] MEDS: Heparin Sod,Pork In 0.45% Nacl 25,000 UNIT/500 ML IV.SOLN IV SCH (14:08)
[2018-01-24] MEDS: Atenolol 50 MG Tab PO SCH (16:24)
--- NOTE | 2018-01-24 16:59 | PCM.PN ---
- General Info Date of Service: 01/24/18 - Review of Systems General: Reports: No Symptoms HEENT: Reports: No Symptoms Pulmonary: Reports: No Symptoms Cardiovascular: Reports: No Symptoms Gastrointestinal: Reports: No Symptoms Genitourinary: Reports: No Symptoms Musculoskeletal: Reports: No Symptoms Skin: Reports: No Symptoms Neurological: Reports: No Symptoms Psychiatric: Reports: No Symptoms - Patient Data Vitals - Most Recent: Last Vital Signs Temp 98.5 F 01/24/18 16:00 Pulse 65 01/24/18 16:24 Resp 16 01/24/18 16:00 BP 128/79 01/24/18 16:24 Pulse Ox 99 01/24/18 16:00 Weight - Most Recent: 145 lb 9.6 oz I&O - Last 24 Hours: Intake & Output 01/24/18 01/24/18 01/24/18 06:59 14:59 22:59 Intake Total 718 1277 Output Total 1125 700 Balance -407 577 Lab Results Last 24 Hours: Laboratory Results - last 24 hr 01/23/18 01/24/18 01/24/18 Range/Units 18:43 01:12 06:43 WBC 4.03 (4.0-11.0) K/uL RBC 4.46 (4.30-5.90) M/uL Hgb 13.4 (12.0-16.0) g/dL Hct 41.4 (36.0-46.0) % MCV 92.8 (80.0-98.0) fL MCH 30.0 (27.0-32.0) pg MCHC 32.4 (31.0-37.0) g/dL RDW Std Deviation 47.8 (28.0-62.0) fl RDW Coeff of Terry 14 (11.0-15.0) % Plt Count 216 (150-400) K/uL MPV 9.10 (7.40-12.00) fL Neut % (Auto) 41.7 L (48.0-80.0) % Lymph % (Auto) 40.7 H (16.0-40.0) % [place] % (Auto) 12.9 (0.0-15.0) % Eos % (Auto) 4.0 (0.0-7.0) % Baso % (Auto) 0.7 (0.0-1.5) % Neut # (Auto) 1.7 (1.4-5.7) K/uL Lymph # (Auto) 1.6 (0.6-2.4) K/uL [place] # (Auto) 0.5 (0.0-0.8) K/uL Eos # (Auto) 0.2 (0.0-0.7) K/uL Baso # (Auto) 0.0 (0.0-0.1) K/uL Nucleated RBC % 0.0 /100WBC Nucleated RBCs # 0 K/uL APTT 123.4 H 57.8 H (18.6-31.3) SEC Sodium (136-145) mmol/L Potassium (3.5-5.1) mmol/L Chloride (98-107) mmol/L Carbon Dioxide (21.0-32.0) mmol/L BUN (7.0-18.0) mg/dL Creatinine (0.6-1.0) mg/dL Est Cr Clr Drug Dosing mL/min Estimated GFR (MDRD) ml/min Glucose (74-106) mg/dL Calcium (8.5-10.1) mg/dL Total Bilirubin (0.2-1.0) mg/dL AST (15-37) IU/L ALT (14-63) IU/L Alkaline Phosphatase (46-116) U/L Total Protein (6.4-8.2) g/dL Albumin (3.4-5.0) g/dL Globulin (2.0-3.5) g/dL Albumin/Globulin Ratio (1.3-2.8) 01/24/18 01/24/18 01/24/18 Range/Units 06:43 06:43 12:33 WBC (4.0-11.0) K/uL RBC (4.30-5.90) M/uL Hgb (12.0-16.0) g/dL Hct (36.0-46.0) % MCV (80.0-98.0) fL MCH (27.0-32.0) pg MCHC (31.0-37.0) g/dL RDW Std Deviation (28.0-62.0) fl RDW Coeff of Terry (11.0-15.0) % Plt Count (150-400) K/uL MPV (7.40-12.00) fL Neut % (Auto) (48.0-80.0) % Lymph % (Auto) (16.0-40.0) % [place] % (Auto) (0.0-15.0) % Eos % (Auto) (0.0-7.0) % Baso % (Auto) (0.0-1.5) % Neut # (Auto) (1.4-5.7) K/uL Lymph # (Auto) (0.6-2.4) K/uL [place] # (Auto) (0.0-0.8) K/uL Eos # (Auto) (0.0-0.7) K/uL Baso # (Auto) (0.0-0.1) K/uL Nucleated RBC % /100WBC Nucleated RBCs # K/uL APTT 57.2 H 60.6 H (18.6-31.3) SEC Sodium 141 (136-145) mmol/L Potassium 4.4 (3.5-5.1) mmol/L Chloride 106 (98-107) mmol/L Carbon Dioxide 30.4 (21.0-32.0) mmol/L BUN 11 (7.0-18.0) mg/dL Creatinine 0.7 (0.6-1.0) mg/dL Est Cr Clr Drug Dosing 54.48 mL/min Estimated GFR (MDRD) > 60.0 ml/min Glucose 99 (74-106) mg/dL Calcium 8.5 (8.5-10.1) mg/dL Total Bilirubin 0.6 (0.2-1.0) mg/dL AST 18 (15-37) IU/L ALT 19 (14-63) IU/L Alkaline Phosphatase 65 (46-116) U/L Total Protein 6.3 L (6.4-8.2) g/dL Albumin 3.1 L (3.4-5.0) g/dL Globulin 3.2 (2.0-3.5) g/dL Albumin/Globulin Ratio 1.0 L (1.3-2.8) Med Orders - Current: Current Medications Acetaminophen (Tylenol) 650 mg PO Q4H PRN PRN Reason: Pain (Mild 1-3)/fever Hydrocodone Bitart/Acetaminophen ([place] 325-5 Mg) 1 tab PO Q4H PRN PRN Reason: Pain Albuterol/Ipratropium (Duoneb 3.0-0.5 Mg/3 Ml) 3 ml NEB Q4HRRT PRN PRN Reason: Shortness Of Breath/wheezing Atenolol (Tenormin) 50 mg PO DAILY@1700 [facility] Last Admin: 01/24/18 16:24 Dose: 50 mg Atorvastatin Calcium (Lipitor) 80 mg PO BEDTIME [facility] Last Admin: 01/23/18 21:30 Dose: 80 mg Heparin Sodium/Sodium Chloride (Heparin-1/2ns 25,000 Units/500) 25,000 unit in 500 mls @ 23.775 mls/hr IV TITRATE SONY; Protocol Last Admin: 01/24/18 14:08 Dose: 15 units/kg/hr, 19.813 mls/hr Levothyroxine Sodium (Levothyroxine) 75 mcg PO DAILY [facility] Last Admin: 01/24/18 08:28 Dose: 75 mcg Sodium Chloride (Saline Flush) 10 ml FLUSH ASDIRECTED PRN PRN Reason: Keep Vein Open Sodium Chloride (Saline Flush) 2.5 ml FLUSH ASDIRECTED PRN PRN Reason: Keep Vein Open Discontinued Medications Atenolol (Tenormin) 50 mg PO DAILY [facility] Atorvastatin Calcium (Lipitor) 80 mg PO DAILY [facility] Heparin Sodium (Porcine) (Heparin Sodium) 5,000 units IVPUSH ONETIME ONE Stop: 01/23/18 12:20 Last Admin: 01/23/18 12:31 Dose: 5,000 units Morphine Sulfate (Morphine) 2 mg IVPUSH Q2H PRN PRN Reason: Pain (severe 7-10) Stop: 01/24/18 11:34 - Exam General: Alert, Oriented HEENT: Pupils Equal, Pupils Reactive, EOMI Neck: Supple, Trachea Midline, No JVD Lungs: Clear to Auscultation, Normal Respiratory Effort Cardiovascular: Regular Rate, Regular Rhythm, No Murmurs GI/Abdominal Exam: Normal Bowel Sounds, Soft, Non-Tender, No Distention, No Abnormal Bruit, No Mass Extremities: Other (improved left lower extremity swelling) - Problem List & Annotations (1) DVT, lower extremity, proximal, acute SNOMED Code(s): 865707252074 Code(s): I82.4Y9 - ACUTE EMBLSM AND THOMBOS UNSP DEEP VN UNSP PROX LOW EXTRM Status: Acute Current Visit: Yes Qualifiers: Laterality: left Qualified Code(s): I82.4Y2 - Acute embolism and thrombosis of unspecified deep veins of left proximal lower extremity - Problem List Review Problem List Initiated/Reviewed/Updated: Yes - My Orders Last 24 Hours: My Active Orders 01/24/18 08:35 Communication Order [RC] DAILY 01/24/18 09:00 Levothyroxine 75 mcg PO DAILY 01/25/18 05:11 CBC WITH AUTO DIFF [HEME] AM COMPREHENSIVE METABOLIC PN,CMP [CHEM] AM 01/26/18 05:11 CBC WITH AUTO DIFF [HEME] AM COMPREHENSIVE METABOLIC PN,CMP [CHEM] AM 01/27/18 05:11 CBC WITH AUTO DIFF [HEME] AM COMPREHENSIVE METABOLIC PN,CMP [CHEM] AM 01/28/18 05:11 CBC WITH AUTO DIFF [HEME] AM - Plan Plan:: This 67 year old female admitted with acute L proximal DVT to leg 1. L leg DVT improved swelling : Start on Heparin gtt today Patient educated on letting nursing know if she experiences these symptoms. Monitor on Telemetry. Will need to be on anticoagulation for at least 3 months. She will need follow up regarding hypercoagulable state as outpatient. Elevate leg and pain control PRN.Hold heparin tomorrow at 6 am , will start patient on eliquis in am 10 mg po BID for a week followed by 5 mg po bid after 2. HTN: Stable. Continue Atenolol. 3. HDL: Stable continue statin. 4. Hypothyroidism: Stable continue Levothyroxine.
[2018-01-24] MEDS: atorvaSTATin 40 MG Tab PO SCH (20:06)
[2018-01-25 06:35] LABS: CHLORIDE,CL 106 mmol/L (98-107); SODIUM,NA 141 mmol/L (136-145)
[2018-01-25] MEDS: Levothyroxine 75 MCG Tab PO SCH (07:59)
--- NOTE | 2018-01-25 09:15 | PCM.DCSUM1 ---
Discharge Summary - Hospital Course Diagnosis: Stroke: No - Discharge Data Discharge Disposition: Home, Self-Care 01 Condition: Good - Discharge Diagnosis/Problem(s) (1) DVT, lower extremity, proximal, acute SNOMED Code(s): 221114580009 ICD Code: I82.4Y9 - ACUTE EMBLSM AND THOMBOS UNSP DEEP VN UNSP PROX LOW EXTRM Status: Acute Current Visit: Yes Qualifiers: Laterality: left Qualified Code(s): I82.4Y2 - Acute embolism and thrombosis of unspecified deep veins of left proximal lower extremity - Patient Instructions Diet: Usual Diet as Tolerated Activity: As Tolerated Driving: May Drive Today - Discharge Plan Prescriptions/Med Rec: Apixaban [Eliquis] 5 mg PO BID #180 tablet Apixaban [Eliquis] 10 mg PO BID #14 tablet Home Medications: Home Meds Atenolol [Tenormin] 50 mg PO DAILY 09/06/17 [History] Levothyroxine 75 mcg PO DAILY 09/06/17 [History] atorvaSTATin [Lipitor] 80 mg PO DAILY 09/06/17 [History] Apixaban [Eliquis] 5 mg PO BID #180 tablet 01/25/18 [Rx] Apixaban [Eliquis] 10 mg PO BID #14 tablet 01/25/18 [Rx] Referrals: [facility] [Outside] Noah Turcios MD [Ordering Only Provider] - - Patient Data Vitals - Most Recent: Last Vital Signs Temp 97.7 F 01/25/18 08:00 Pulse 68 01/25/18 08:00 Resp 18 01/25/18 08:00 BP 143/85 H 01/25/18 08:00 Pulse Ox 95 01/25/18 08:00 Weight - Most Recent: 145 lb 9.6 oz I&O - Last 24 hours: Intake & Output 01/24/18 01/25/18 01/25/18 22:59 06:59 14:59 Intake Total 1277 706 Output Total 700 400 Balance 577 306 Lab Results - Last 24 hrs: Laboratory Results - last 24 hr 01/24/18 01/24/18 01/25/18 Range/Units 12:33 22:08 05:48 WBC 4.03 (4.0-11.0) K/uL RBC 4.46 (4.30-5.90) M/uL Hgb 13.4 (12.0-16.0) g/dL Hct 41.4 (36.0-46.0) % MCV 92.8 (80.0-98.0) fL MCH 30.0 (27.0-32.0) pg MCHC 32.4 (31.0-37.0) g/dL RDW Std Deviation 47.6 (28.0-62.0) fl RDW Coeff of Terry 14 (11.0-15.0) % Plt Count 228 (150-400) K/uL MPV 9.30 (7.40-12.00) fL Neut % (Auto) 40.0 L (48.0-80.0) % Lymph % (Auto) 40.9 H (16.0-40.0) % [place] % (Auto) 13.6 (0.0-15.0) % Eos % (Auto) 5.0 (0.0-7.0) % Baso % (Auto) 0.5 (0.0-1.5) % Neut # (Auto) 1.6 (1.4-5.7) K/uL Lymph # (Auto) 1.7 (0.6-2.4) K/uL [place] # (Auto) 0.6 (0.0-0.8) K/uL Eos # (Auto) 0.2 (0.0-0.7) K/uL Baso # (Auto) 0.0 (0.0-0.1) K/uL Nucleated RBC % 0.0 /100WBC Nucleated RBCs # 0 K/uL APTT 60.6 H (18.6-31.3) SEC Sodium (136-145) mmol/L Potassium (3.5-5.1) mmol/L Chloride (98-107) mmol/L Carbon Dioxide (21.0-32.0) mmol/L BUN (7.0-18.0) mg/dL Creatinine (0.6-1.0) mg/dL Est Cr Clr Drug Dosing mL/min Estimated GFR (MDRD) ml/min Glucose (74-106) mg/dL Calcium (8.5-10.1) mg/dL Phosphorus 5.0 H (2.6-4.7) mg/dL Magnesium 2.1 (1.8-2.4) mg/dL Total Bilirubin (0.2-1.0) mg/dL AST (15-37) IU/L ALT (14-63) IU/L Alkaline Phosphatase (46-116) U/L Total Protein (6.4-8.2) g/dL Albumin (3.4-5.0) g/dL Globulin (2.0-3.5) g/dL Albumin/Globulin Ratio (1.3-2.8) 01/25/18 01/25/18 Range/Units 05:48 05:48 WBC (4.0-11.0) K/uL RBC (4.30-5.90) M/uL Hgb (12.0-16.0) g/dL Hct (36.0-46.0) % MCV (80.0-98.0) fL MCH (27.0-32.0) pg MCHC (31.0-37.0) g/dL RDW Std Deviation (28.0-62.0) fl RDW Coeff of Terry (11.0-15.0) % Plt Count (150-400) K/uL MPV (7.40-12.00) fL Neut % (Auto) (48.0-80.0) % Lymph % (Auto) (16.0-40.0) % [place] % (Auto) (0.0-15.0) % Eos % (Auto) (0.0-7.0) % Baso % (Auto) (0.0-1.5) % Neut # (Auto) (1.4-5.7) K/uL Lymph # (Auto) (0.6-2.4) K/uL [place] # (Auto) (0.0-0.8) K/uL Eos # (Auto) (0.0-0.7) K/uL Baso # (Auto) (0.0-0.1) K/uL Nucleated RBC % /100WBC Nucleated RBCs # K/uL APTT 61.5 H (18.6-31.3) SEC Sodium 141 (136-145) mmol/L Potassium 4.1 (3.5-5.1) mmol/L Chloride 106 (98-107) mmol/L Carbon Dioxide 30.0 (21.0-32.0) mmol/L BUN 12 (7.0-18.0) mg/dL Creatinine 0.7 (0.6-1.0) mg/dL Est Cr Clr Drug Dosing 54.48 mL/min Estimated GFR (MDRD) > 60.0 ml/min Glucose 101 (74-106) mg/dL Calcium 8.5 (8.5-10.1) mg/dL Phosphorus (2.6-4.7) mg/dL Magnesium (1.8-2.4) mg/dL Total Bilirubin 0.5 (0.2-1.0) mg/dL AST 17 (15-37) IU/L ALT 20 (14-63) IU/L Alkaline Phosphatase 62 (46-116) U/L Total Protein 6.2 L (6.4-8.2) g/dL Albumin 3.0 L (3.4-5.0) g/dL Globulin 3.2 (2.0-3.5) g/dL Albumin/Globulin Ratio 0.9 L (1.3-2.8) Med Orders - Current: Current Medications Acetaminophen (Tylenol) 650 mg PO Q4H PRN PRN Reason: Pain (Mild 1-3)/fever Hydrocodone Bitart/Acetaminophen ([place] 325-5 Mg) 1 tab PO Q4H PRN PRN Reason: Pain Albuterol/Ipratropium (Duoneb 3.0-0.5 Mg/3 Ml) 3 ml NEB Q4HRRT PRN PRN Reason: Shortness Of Breath/wheezing Atenolol (Tenormin) 50 mg PO DAILY@1700 [facility] Last Admin: 01/24/18 16:24 Dose: 50 mg Atorvastatin Calcium (Lipitor) 80 mg PO BEDTIME [facility] Last Admin: 01/24/18 20:06 Dose: 80 mg Levothyroxine Sodium (Levothyroxine) 75 mcg PO DAILY [facility] Last Admin: 01/25/18 07:59 Dose: 75 mcg Sodium Chloride (Saline Flush) 10 ml FLUSH ASDIRECTED PRN PRN Reason: Keep Vein Open Sodium Chloride (Saline Flush) 2.5 ml FLUSH ASDIRECTED PRN PRN Reason: Keep Vein Open Discontinued Medications Atenolol (Tenormin) 50 mg PO DAILY [facility] Atorvastatin Calcium (Lipitor) 80 mg PO DAILY [facility] Heparin Sodium (Porcine) (Heparin Sodium) 5,000 units IVPUSH ONETIME ONE Stop: 01/23/18 12:20 Last Admin: 01/23/18 12:31 Dose: 5,000 units Heparin Sodium/Sodium Chloride (Heparin-1/2ns 25,000 Units/500) 25,000 unit in 500 mls @ 23.775 mls/hr IV TITRATE SONY; Protocol Last Admin: 01/24/18 14:08 Dose: 15 units/kg/hr, 19.813 mls/hr Morphine Sulfate (Morphine) 2 mg IVPUSH Q2H PRN PRN Reason: Pain (severe 7-10) Stop: 01/24/18 11:34
[2018-01-25] MEDS ORDERED: Apixaban 5 MG Tab PO ONE ×2 (11:00→11:23)
== END 2018-01-25 11:50 | disposition home or self-care (01) ==
LOC: MW.ICU 10:58 → MW.MS 18:25
PROVIDERS: ADMIT Internal Medicine; ATTEND Internal Medicine
DX: I82.4Y2 Acute embolism and thrombosis of unspecified deep veins of left proximal lower extremity (principal); I10 Essential (primary) hypertension; E03.9 Hypothyroidism, unspecified; E78.5 Hyperlipidemia, unspecified; C50.912 Malignant neoplasm of unspecified site of left female breast; K57.30 Diverticulosis of large intestine without perforation or abscess without bleeding; K21.9 Gastro-esophageal reflux disease without esophagitis; K44.9 Diaphragmatic hernia without obstruction or gangrene; M19.90 Unspecified osteoarthritis, unspecified site; Z88.1 Allergy status to other antibiotic agents; Z79.82 Long term (current) use of aspirin; Z79.899 Other long term (current) drug therapy; Z87.891 Personal history of nicotine dependence
CPT/HCPCS: 36415; 80053; 83735; 84100; 85025; 85027; 85610; 85730; 96365; 96366; 96372; 96376; A9270; G0378; G0379; J1644

== ENCOUNTER 2021-04-08 10:26 | Emergency (ER) | payer OTHER, BC ==
[2021-04-08] MEDS ORDERED: Sodium Chloride 0.9% 1,000 ML IV ONE (11:48)
[2021-04-08 12:35] LABS: BLOOD UREA NITROGEN,BUN 10 mg/dL (7.0-18.0); CARBON DIOXIDE,CO2 31.5 mmol/L (21.0-32.0); CHLORIDE,CL 104 mmol/L (98-107); GLUCOSE RANDOM 114 mg/dL (74-106); LIPASE 88 U/L (73-393); POTASSIUM,K 3.9 mmol/L (3.5-5.1); SODIUM,NA 142 mmol/L (136-145)
[2021-04-08] MEDS ORDERED: Ondansetron 4 MG/2 ML SDV IVPUSH ONE (13:06)
[2021-04-08] MEDS ORDERED: Acetaminophen 500 MG Tab PO ONE (13:06)
--- NOTE | 2021-04-08 14:17 | CT ---
HISTORY: Left flank pain. TECHNIQUE: Noncontrast CT of the abdomen and pelvis. COMPARISON: 09/06/2017. FINDINGS: No focal liver parenchymal abnormality. Gallbladder is nondistended. Spleen size within normal limits. The adrenal glands are normal. No focal pancreatic abnormality. There are bilateral renal parapelvic cysts. There is no obstructive urinary calculus or significant hydronephrosis. Urinary bladder is mildly distended. - No small bowel obstruction. Colonic diverticulosis without acute diverticulitis. No fluid collection or free intraperitoneal air. - No abdominal aortic aneurysm. - Minor atelectasis or scarring within the lung bases. Prior right-sided mastectomy. - Degenerative changes of the spine. No acute fractures. Degenerative changes sacroiliac joints. IMPRESSION: 1. No specific identified cause of the patient`s left flank pain. 2. Bilaterally, there are renal parapelvic cysts. No hydronephrosis or obstructive calculus. 3. Colonic diverticulosis without acute diverticulitis. Please note that all CT scans at this facility use dose modulation, iterative reconstruction, and/or weight-based dosing when appropriate to reduce radiation dose to as low as reasonably achievable. Dictated by Ed Natarajan MD @ 04/08/2021 2:15:54 PM (Electronically Signed)
--- NOTE | 2021-04-08 14:21 | EDM.PDOC ---
ED HPI GENERAL MEDICAL PROBLEM - General Chief Complaint: Abdominal Pain Stated Complaint: MAYBE KIDNEY STONES Time Seen by Provider: 04/08/21 10:37 Source of Information: Reports: Patient History Limitations: Reports: No Limitations - History of Present Illness INITIAL COMMENTS - FREE TEXT/NARRATIVE: HISTORY AND PHYSICAL: History of present illness: Patient is a 70-year-old female who presents emergency room today with concern of left-sided flank pain x2 days. Patient states that yesterday she had two episodes of nonbilious nonbloody vomiting and nausea yesterday but states that today that has resolved but she has some residual left flank pain. Patient states that she was concerned that maybe she had a kidney stone passing. Patient states that she does have a history of breast cancer but states that she has been in remission for 10 years. Patient denies any other associated symptoms. Patient states that she did take Tylenol and states that this did help with her symptoms yesterday. Patient denies any other symptoms or concerns. Patient denies fever, chills, chest pain, shortness of breath, or cough. Denies headache, neck stiff ness, change in vision, syncope, or near syncope. Denies diarrhea, constipation, or dysuria. Has not noted any blood in urine or stool. Patient has been eating and drinking appropriately. Review of systems: As per history of present illness and below otherwise all systems reviewed and negative. Past medical history: As per history of present illness and as reviewed below otherwise noncontributory. Surgical history: As per history of present illness and as reviewed below otherwise noncontributory. Social history: See social history for further information Family history: As per history of present illness and as reviewed below otherwise noncontributory. Physical exam: General: Patient is alert, oriented, and in no acute distress. Patient sitting comfortably on exam table. Vitals stable and reviewed by me. HEENT: Atraumatic, normocephalic, pupils equal and reactive bilaterally, negative for conjunctival pallor or scleral icterus, mucous membranes moist, throat clear, neck supple, nontender, trachea midline. No drooling or trismus noted. No meningeal signs. No hot potato voice noted. Lungs: Clear to auscultation, breath sounds equal bilaterally, chest nontender. Heart: S1S2, regular rate and rhythm without overt murmur Abdomen: Soft, nondistended, nontender. Negative for masses or hepatosplenomegaly. Negative for costovertebral tenderness. Pelvis: Stable nontender. Genitourinary: Deferred. Rectal: Deferred. Skin: Intact, warm, dry. No lesions or rashes noted. Extremities: Atraumatic, negative for cords or calf pain. Neurovascular unremarkable. Neuro: Awake, alert, oriented. Cranial nerves II through XII unremarkable. Cerebellum unremarkable. Motor and sensory unremarkable throughout. Exam nonfocal. Notes: Patient is a 70-year-old female who presents emergency room today with concern of left-sided flank pain x2 days with nausea and vomiting yesterday but not today. Upon arrival to the ED, patient is vitally stable and well-appearing on exam. Patient does not have any abdominal tenderness or CVA tenderness. However, patient does point to her left flank area and states that this is where her pain and tenderness is. Will obtain basic lab work, urinalysis, abdominal pelvic CT scan looking for possible ureterolithiasis or other acute abdomen pathology. Mild derangements of lab work today unremarkable. Urinalysis shows trace leukocyte Estrace with 0-5 red blood cells and 0-5 white blood cells so no evidence of infection or hematuria. Abdominal pelvic CT scan shows no specific identifiable cause to patient's left flank pain. Bilaterally, there are renal parapelvic cysts with no hydronephrosis or obstructive calculus. Colonic diverticulosis without acute diverticulitis. Upon reevaluation of patient, she has improvement of her symptoms with therapeutics given today in the emergency room. Strict return precautions thoroughly discussed with patient. Patient remains vitally stable today in the emergency room. Discussed importance for follow-up with a primary care provider. Voices understanding and is agreeable to plan of care. Denies any further questions or concerns at this time. Diagnostics: CBC, CMP, UA, lipase, abdominal pelvic CT scan without contrast Therapeutics: Tylenol, Zofran Prescription: None Impression: Left flank pain Plan: 1. You can alternate ibuprofen and Tylenol as directed for pain and discomfort. 2. Follow-up with primary care provider as discussed. Return to the ED as needed and as discussed. Definitive disposition and diagnosis as appropriate pending reevaluation and review of above. left flank Pain Score (Numeric/FACES): 8 - Related Data Allergies Allergy/AdvReac Type Severity Reaction Status Date / Time amoxicillin Allergy Rash Verified 04/08/21 11:42 clavulanic acid Allergy Rash Verified 04/08/21 11:42 [From Augmentin] diltiazem Allergy Cannot Verified 04/08/21 11:42 Remember shellfish derived Allergy Rash Verified 04/08/21 11:42 Home Meds: Home Meds atenoloL [Tenormin] 50 mg PO DAILY 09/06/17 [History] atorvaSTATin [Lipitor] 40 mg PO DAILY 09/06/17 [History] Alendronate Sodium [Fosamax] 70 mg PO WEEKLY 05/14/18 [History] Apixaban [Eliquis] 5 mg PO BID 05/14/18 [History] Calcium Carb/Vitamin D3/Vit K1 [Calcium + D Soft Chewable Tab] 2 tab.chew CHEW BID 05/14/18 [History] Inulin/Chromium Picolinate [Fiber Gummies] 1 tab.chew CHEW DAILY 05/14/18 [History] Levothyroxine Sodium [Synthroid] 75 mcg PO DAILY 05/14/18 [History] Multivit-Min/Iron/Folic/Lutein [Centrum Silver Women Tablet] 1 tab PO ASDIRECTED 05/14/18 [History] Ranitidine [Zantac] 150 mg PO ASDIRECTED PRN 05/14/18 [History] Past Medical History HEENT History: Reports: Cataract, Other (See Below) Other HEENT History: wears glasses Cardiovascular History: Reports: Blood Clots/VTE/DVT, Cardiomyopathy, High Cholesterol, Hypertension Other Cardiovascular History: Enlarged heart, hx DVT left leg 2008 Respiratory History: Reports: None Gastrointestinal History: Reports: Diverticulosis, GERD, Other (See Below) Other Gastrointestinal History: diverticulits or chron's-unsure of dx , occasional heartburn Genitourinary History: Reports: UTI, Recurrent [employer] History: Reports: Musculoskeletal History: Reports: Fracture, Osteoarthritis, Osteoporosis Other Musculoskeletal History: hx fx left ankle Neurological History: Reports: None Psychiatric History: Reports: None Endocrine/Metabolic History: Reports: Hypothyroidism Hematologic History: Reports: Blood Transfusion(s) Immunologic History: Reports: None Oncologic (Cancer) History: Reports: Breast Dermatologic History: Reports: None - Infectious Disease History Infectious Disease History: Reports: Chicken Pox, Measles, Mumps - Past Surgical History Head Surgeries/Procedures: Reports: None HEENT Surgical History: Reports: Tonsillectomy, Other (See Below) Other HEENT Surgeries/Procedures: hx jaw surgery to remove growth 1970 Cardiovascular Surgical History: Reports: None Respiratory Surgical History: Reports: None GI Surgical History: Reports: Appendectomy Female Surgical History: Reports: Mastectomy, Tubal Ligation Other Female Surgeries/Procedures: hx rt mastectomy with lymph node disection Endocrine Surgical History: Reports: None Neurological Surgical History: Reports: None Musculoskeletal Surgical History: Reports: None Oncologic Surgical History: Reports: Mastectomy Dermatological Surgical History: Reports: None Social & Family History - Family History Family Medical History: No Pertinent Family History Oncologic: Reports: Colon - Tobacco Use Tobacco Use Status *Q: Former Tobacco User Used Tobacco, but Quit: Yes Month/Year Tobacco Last Used: 50 - Caffeine Use Caffeine Use: Reports: None Other Caffeine Use: caffeine free - Recreational Drug Use Recreational Drug Use: No ED ROS GENERAL - Review of Systems Review Of Systems: Comprehensive ROS is negative, except as noted in HPI. ED EXAM, GENERAL - Physical Exam Exam: See Below (see dictation) Course - Vital Signs Last Recorded V/S: Last Vital Signs Temp 97.6 F 04/08/21 14:14 Pulse 60 04/08/21 14:14 Resp 16 04/08/21 14:14 BP 171/92 H 04/08/21 14:14 Pulse Ox 96 04/08/21 14:14 - Orders/Labs/Meds Orders: Active Orders 24 hr Category Date Time Status CULTURE URINE [MREF] Stat Lab 04/08/21 11:48 Received Labs: Laboratory Tests 04/08/21 04/08/21 04/08/21 Range/Units 11:48 12:04 12:04 WBC 6.06 (4.0-11.0) K/uL RBC 4.97 (4.30-5.90) M/uL Hgb 15.6 (12.0-16.0) g/dL Hct 46.8 H (36.0-46.0) % MCV 94.2 (80.0-98.0) fL MCH 31.4 (27.0-32.0) pg MCHC 33.3 (31.0-37.0) g/dL RDW Std Deviation 45.4 (28.0-62.0) fl RDW Coeff of Terry 13 (11.0-15.0) % Plt Count 240 (150-400) K/uL MPV 9.50 (7.40-12.00) fL Neut % (Auto) 66.3 (48.0-80.0) % Lymph % (Auto) 21.5 (16.0-40.0) % [place] % (Auto) 8.9 (0.0-15.0) % Eos % (Auto) 3.0 (0.0-7.0) % Baso % (Auto) 0.3 (0.0-1.5) % Neut # (Auto) 4.0 (1.4-5.7) K/uL Lymph # (Auto) 1.3 (0.6-2.4) K/uL [place] # (Auto) 0.5 (0.0-0.8) K/uL Eos # (Auto) 0.2 (0.0-0.7) K/uL Baso # (Auto) 0.0 (0.0-0.1) K/uL Nucleated RBC % 0.0 /100WBC Nucleated RBCs # 0 K/uL Sodium 142 (136-145) mmol/L Potassium 3.9 (3.5-5.1) mmol/L Chloride 104 (98-107) mmol/L Carbon Dioxide 31.5 (21.0-32.0) mmol/L BUN 10 (7.0-18.0) mg/dL Creatinine 0.9 (0.6-1.0) mg/dL Est Cr Clr Drug Dosing 40.58 mL/min Estimated GFR (MDRD) > 60.0 ml/min Glucose 114 H (74-106) mg/dL Calcium 8.4 L (8.5-10.1) mg/dL Total Bilirubin 0.7 (0.2-1.0) mg/dL AST 24 (15-37) IU/L ALT 29 (14-63) IU/L Alkaline Phosphatase 90 (46-116) U/L Total Protein 7.6 (6.4-8.2) g/dL Albumin 3.7 (3.4-5.0) g/dL Globulin 3.9 (2.6-4.0) g/dL Albumin/Globulin Ratio 0.9 (0.9-1.6) Lipase 88 (73-393) U/L Urine Color YELLOW Urine Appearance CLEAR Urine pH 6.0 (5.0-8.0) Ur Specific Dora 1.025 (1.001-1.035) Urine Protein NEGATIVE (NEGATIVE) mg/dL Urine Glucose (UA) NEGATIVE (NEGATIVE) mg/dL Urine Ketones NEGATIVE (NEGATIVE) mg/dL Urine Occult Blood SMALL H (NEGATIVE) Urine Nitrite NEGATIVE (NEGATIVE) Urine Bilirubin NEGATIVE (NEGATIVE) Urine Urobilinogen 0.2 (<2.0) EU/dL Ur Leukocyte Esterase TRACE H (NEGATIVE) Urine RBC 0-5 (0-2/HPF) Urine WBC 0-5 (0-5/HPF) Ur Epithelial Cells RARE (NONE-FEW) Urine Bacteria RARE (NEGATIVE) Meds: Medications Discontinued Medications Generic Name Dose Route Start Last Admin Trade Name Freq PRN Reason Stop Dose Admin Acetaminophen 1,000 mg 04/08/21 13:06 04/08/21 14:01 Acetaminophen 500 Mg Tab PO 04/08/21 13:07 1,000 mg ONETIME ONE Administration Sodium Chloride 1,000 mls @ 999 mls/hr 04/08/21 11:48 04/08/21 12:05 Normal Saline IV 04/08/21 12:48 999 mls/hr BOLUS ONE Administration Ondansetron HCl 4 mg 04/08/21 13:06 04/08/21 14:02 Ondansetron 4 Mg/2 Ml Sdv IVPUSH 04/08/21 13:07 4 mg ONETIME ONE Administration Departure - Departure Time of Disposition: 14:21 Disposition: Home, Self-Care 01 Clinical Impression: Flank pain - Discharge Information Instructions: Abdominal Pain, Adult, [id number] Referrals: Av Hernandez C2 TACTICAL ANALYSIS TECHNICIAN [Primary Care Provider] - Forms: ED Department Discharge Additional Instructions: The following information is given to patients seen in the emergency department who are being discharged to home. This information is to outline your options for follow-up care. We provide all patients seen in our emergency department with a follow-up referral. The need for follow-up, as well as the timing and circumstances, are variable depending upon the specifics of your emergency department visit. If you don't have a primary care physician on staff, we will provide you with a referral. We always advise you to contact your personal physician following an emergency department visit to inform them of the circumstance of the visit and for follow-up with them and/or the need for any referrals to a consulting specialist. The emergency department will also refer you to a specialist when appropriate. This referral assures that you have the opportunity for follow-up care with a specialist. All of these measure are taken in an effort to provide you with optimal care, which includes your follow-up. Under all circumstances we always encourage you to contact your private physician who remains a resource for coordinating your care. When calling for follow-up care, please make the office aware that this follow-up is from your recent emergency room visit. If for any reason you are refused follow-up, please contact the [facility] Emergency Department at and asked to speak to the emergency department charge nurse. [facility] [address] [place] [id number] [id number] 1. You can alternate ibuprofen and Tylenol as directed for pain and discomfort. 2. Follow-up with primary care provider as discussed. Return to the ED as needed and as discussed. Sepsis Event Note (ED) - Evaluation Sepsis Screening Result: No Definite Risk - Focused Exam Vital Signs: Vital Signs Temp Pulse Resp BP Pulse Ox 04/08/21 14:14 97.6 F 60 16 171/92 H 96 04/08/21 11:37 97.0 F 62 18 172/90 H 98 - My Orders Last 24 Hours: My Active Orders 04/08/21 11:48 CULTURE URINE [MREF] Stat - Assessment/Plan Last 24 Hours: My Active Orders 04/08/21 11:48 CULTURE URINE [MREF] Stat
== END 2021-04-08 14:46 | disposition home or self-care (01) ==
LOC: MW.ED 10:26
DX: R10.9 Unspecified abdominal pain (principal); R11.2 Nausea with vomiting, unspecified; I10 Essential (primary) hypertension; E78.00 Pure hypercholesterolemia, unspecified; K21.9 Gastro-esophageal reflux disease without esophagitis; E03.9 Hypothyroidism, unspecified; Z88.0 Allergy status to penicillin; Z91.013 Allergy to seafood; Z88.1 Allergy status to other antibiotic agents; Z79.01 Long term (current) use of anticoagulants; Z79.899 Other long term (current) drug therapy; Z87.891 Personal history of nicotine dependence
CPT/HCPCS: 36415; 74176; 80053; 81001; 83690; 85025; 87086; 96374; 99284; A9270; J2405; J7030

== ENCOUNTER 2021-11-06 10:08 | Emergency (ER) | payer OTHER, BC | END 2021-11-06 12:35 | disposition home or self-care (01) | LOC: MW.ED 10:08 | DX: S00.03XA Contusion of scalp, initial encounter (principal); S80.01XA Contusion of right knee, initial encounter; E78.00 Pure hypercholesterolemia, unspecified; E03.9 Hypothyroidism, unspecified; M19.90 Unspecified osteoarthritis, unspecified site; Z90.49 Acquired absence of other specified parts of digestive tract; Z79.899 Other long term (current) drug therapy; Z79.01 Long term (current) use of anticoagulants; Z79.4 Long term (current) use of insulin; Z88.0 Allergy status to penicillin; Z88.1 Allergy status to other antibiotic agents; Z88.8 Allergy status to other drugs, medicaments and biological substances; Z91.013 Allergy to seafood; W01.10XA Fall on same level from slipping, tripping and stumbling with subsequent striking against unspecified object, initial encounter | CPT/HCPCS: 70450; 70450-26; 70486; 70486-26; 73562-26-RT; 73562-RT; 93005; 93010; 99284-25; 99285 ==

== ENCOUNTER 2023-06-03 08:07 | Day surgery (SDC) | payer OTHER, BC ==
[~2023-06-03 08:07] MED LIST: Lactated Ringers 1,000 ML IV SCH; Sodium Chloride 0.9% 10 ML Syringe FLUSH PRN; Sodium Chloride 0.9% 2.5 ML Syringe FLUSH PRN; Sodium Chloride 0.9% 20 ML SDV IV PRN
[2023-06-03] MEDS ORDERED: Lidocaine 2% 5 ML SDV ONE (10:02)
[2023-06-03] MEDS ORDERED: Propofol 200 MG/20 ML SDV ONE (10:02)
== END 2023-06-03 11:15 | disposition home or self-care (01) ==
LOC: MW.SDS 08:07
PROVIDERS: ATTEND Surgery
DX: Z12.11 Encounter for screening for malignant neoplasm of colon (principal); K29.50 Unspecified chronic gastritis without bleeding; K21.00 Gastro-esophageal reflux disease with esophagitis, without bleeding; K22.89 Other specified disease of esophagus; K57.30 Diverticulosis of large intestine without perforation or abscess without bleeding; K44.9 Diaphragmatic hernia without obstruction or gangrene; E03.9 Hypothyroidism, unspecified; K31.7 Polyp of stomach and duodenum; I10 Essential (primary) hypertension; E78.00 Pure hypercholesterolemia, unspecified; Z90.49 Acquired absence of other specified parts of digestive tract; Z87.891 Personal history of nicotine dependence; Z79.899 Other long term (current) drug therapy; Z79.01 Long term (current) use of anticoagulants; Z79.890 Hormone replacement therapy; Z91.013 Allergy to seafood; Z88.1 Allergy status to other antibiotic agents; Z88.8 Allergy status to other drugs, medicaments and biological substances
CPT/HCPCS: 43239; 45378; 88305; 88312; J2704; J7120; 00813; 99100; J3490

== ENCOUNTER 2023-08-26 06:58 | Day surgery (SDC) | payer OTHER, BC ==
[~2023-08-26 06:58] MED LIST changes: -Lactated Ringers 1,000 ML IV SCH
[2023-08-26] MEDS: Lactated Ringers 1,000 ML IV SCH (07:28)
[2023-08-26] MEDS ORDERED: Propofol 200 MG/20 ML SDV ONE (08:39)
[2023-08-26] MEDS ORDERED: Lidocaine 2% 5 ML SDV ONE (08:39)
== END 2023-08-26 09:25 | disposition home or self-care (01) ==
LOC: MW.SDS 06:58
PROVIDERS: ATTEND Surgery
DX: K22.70 Barrett's esophagus without dysplasia (principal); K44.9 Diaphragmatic hernia without obstruction or gangrene; K21.9 Gastro-esophageal reflux disease without esophagitis; I10 Essential (primary) hypertension; E78.00 Pure hypercholesterolemia, unspecified; Z79.899 Other long term (current) drug therapy; Z88.0 Allergy status to penicillin; Z88.8 Allergy status to other drugs, medicaments and biological substances
CPT/HCPCS: 43239; J2704; J7120; 88305; J3490

== ENCOUNTER 2024-02-10 07:19 | Day surgery (SDC) | payer OTHER, BC ==
[2024-02-10] MEDS: Lactated Ringers 1,000 ML IV SCH (07:40)
[2024-02-10] MEDS ORDERED: Propofol 200 MG/20 ML SDV ONE (08:07)
[2024-02-10] MEDS ORDERED: Lidocaine 2% 5 ML SDV ONE (08:07)
[2024-02-10] MEDS ORDERED: fentaNYL 100 MCG/2 ML SDV ONE (08:07)
== END 2024-02-10 09:35 | disposition home or self-care (01) ==
LOC: MW.SDS 07:19
PROVIDERS: ATTEND Surgery
DX: K31.7 Polyp of stomach and duodenum (principal); K44.9 Diaphragmatic hernia without obstruction or gangrene; K21.9 Gastro-esophageal reflux disease without esophagitis; K22.70 Barrett's esophagus without dysplasia; I10 Essential (primary) hypertension; E78.00 Pure hypercholesterolemia, unspecified; E03.9 Hypothyroidism, unspecified; Z79.890 Hormone replacement therapy; Z79.899 Other long term (current) drug therapy; Z88.0 Allergy status to penicillin; Z91.013 Allergy to seafood
CPT/HCPCS: 43239; 88305; J2704; J3010; J7120; 00731; 99100; J3490